=== PATIENT | male | born 1955 | race Caucasian/White ===

== ENCOUNTER 2024-03-10 00:47 | Emergency (ER) | payer OTHER, SELFPAY ==
[2024-03-10 00:59] VITALS: BP 133/92
--- NOTE | 2024-03-10 01:48 | ED.GENMED ---
History of Present Illness
General
Chief Complaint: Anxiety
Source: patient
Exam Limitations: none
Time Seen by Provider: 03/10/24 01:35
History of Present Illness
History of Present Illness:
This is a 68 year old male that comes in with Multiple complaints. States that he has been having these body spasm where he just can't sit still. States that this has been going no for couple of weeks. States that he can't relax. States that it is
worse now then it has ever been. States that he also ran out of his Tramadol yesterday morning and that his PCP had increased this to TID. States that he is unable to get the Prescription filled until Friday. States that he has had increased SOB,
nausea that comes and goes and diarrhea that comes and goes. States that he has a migraines and is lightheaded. States that he also eat a gummy tonight as he can't smoke the Marijuana any more. Denies any fever, shaking chills, chest pain, abd
pain, vomiting, urinary burning.
Past History
Past History
ED Past Medical History: GERD, NIDDM and Other (Peritonitis, Pulmonary nodules (followed up at [facility]), Osteoarthritis, Degenerative disc disease, Migraines. Vertigo. )
ED Past Surgical History: Other (Cataracts, Right hernia repair)
Social History
Tobacco: Former smoker
Alcohol: Occasional
Personal: Single
Living: with roommate
Review of Systems
Review of Systems
All Other Systems: ROS reviewed and negative except as documented in HPI and ROS
Constitutional: Reports no symptoms; Denies fever or chills
EENT: Reports no symptoms
Respiratory: Reports trouble breathing; Denies cough
Cardiac: Reports no symptoms; Denies chest pain
ABD/GI: Reports nausea (On and off) and diarrhea (on and off); Denies abdominal pain or vomiting
: Reports no symptoms; Denies dysuria, frequency or urgency
Musculoskeletal: Reports other (body spasm, can't sit still)
Skin: Reports no symptoms
Neurological: Reports headache and other (Lightheaded); Denies dizzy
Psychiatric: Reports anxiety
Phy Exam
General Physical Exam
General Presentation: no apparent distress
General age: appears stated age
General Skin: warm and dry
General Habitus: elderly
General Mental: alert
General Hydration: dry mucous membranes
ENT Exam
ENT Exam: TM's normal, pharynx normal and neck supple
Eye Exam
Eye Exam: EOMI
Cardiovascular Exam
Cardiovascular Exam: regular rate/rhythm, no edema and normal peripheral pulses
Pulmonary Exam
Pulmonary Exam: lungs clear, no respiratory distress, no rales, chest non tender, no crackles, no rhonchi, no wheezing and no cough
Gastrointestinal Exam
Gastrointestinal Exam: normal bowel sounds, non tender, soft, no organomegaly, no pulsatile mass and non distended
Musculoskeletal Exam
Musculoskeletal Exam: full ROM and no edema
Skin Exam
Skin Exam: normal color, warm/dry, no rash and no petechia
Psychiatric Exam
Psychiatric Exam: anxious
Course
Orders/Labs/Results
Orders:
Orders
03/10/24 01:47
Electrocardiogram (*1) Urgent
Reason for Study: Shortness of Breath
EKG- Treatment ONCE
Tramadol HCl [Ultram] 50 mg PO NOW STA
CR Chest - 2 Views Urgent
Comment:
Reason For Exam: sob
03/10/24 02:18
Complete Blood Count/With Diff Urgent
Comprehensive Metabolic Panel Urgent
03/10/24 02:51
Lorazepam [Ativan] 1 mg PO NOW STA
Abnormal Lab Results
03/10/24
02:18
RBC 4.23 L 10^6/uL
(4.70-6.10)
Hct 38.3 L %
(39.0-52.0)
MCH 32.4 H pg
(27.0-31.0)
Absolute Monos (auto) 0.9 H 10^3/uL
(0.1-0.6)
Monocytes % 12.0 H %
(1.7-9.3)
03/10/24 02:18
03/10/24 02:18
Labs unremarkable.
Vital Signs
Initial and Last Documented VS:
Initial Vital Signs
Temp Pulse Resp BP Pulse Ox
97.7 F 94 22 133/92 97
03/10/24 00:59 03/10/24 00:59 03/10/24 00:59 03/10/24 00:59 03/10/24 00:59
Last Documented Vital Signs
Temp Pulse Resp BP Pulse Ox
97.7 F 94 22 125/88 94
03/10/24 00:59 03/10/24 00:59 03/10/24 00:59 03/10/24 02:22 03/10/24 02:22
MDM/Problems Addressed
Differential Diagnosis Includes:
anxiety, Gummy reaction, Tramadol withdraw
MDM/Problems Addressed:
This is a 68 year old male that comes in with c/o feeling like his body is in spasm and that he can't sit still. States that this has been going on for a few weeks. States that he has had increased SOB but just recently had a CT of the chest done at
[facility] and there is nodule that they are watching. States that he ran out of his Tramadol and is unable to get this filled until Friday. States thta he has nausea and diarrhea that comes and goes.
Will check labs, Medicate with Tramadol and recheck patient.
Back into see patient. Explained that his blood work is hossein. Chest x-ray is negative for any acute findings. Patient has known Pulmonary nodules that are being followed at [facility]. Patient is sitting in the chair and states that he can't sit
still. Patient has taken Gummy's before coming. Explained that people react differently to the gummy's and would encouraged patient not to use them. Patient is to follow up with the Family doctor tomorrow. Will given A dose of Ativan now and
discharge patient home with a prescription for his Tramadol. Patient to return with any concerns.
Chronic conditions affecting care:
Pulmonary nodules
Acute Exacerbation and/or Progression of Chronic Illness:
Pulmonary nodules
*Radiology
Radiology exam reviewed: preliminary read by ED provider (Chest- negative for active disease. )
*Pulse Oximetry
Patient hypoxic: no
*EKG
Interpreted by ED Provider?: Yes
Heart Rate: 83
Rate: normal
Rhythm: sinus
[place]: normal axis
Interval: normal interval
QRS Pattern: normal QRS
Ischemia: no ischemia
*Oven Baker Interpretation
Rate: Oven Baker- N/A
*Critical Care Note
Total Time (30-74mins, 75-104mins- exclusive of procedures): Not Applicable
ED Attending Note
-
Portions of this chart may have been created with voice recognition software.� Occasional wrong word or��sound alike� substitutions may have occurred due to the inherent limitations of voice recognition software.
Discharge Plan
Departure
Patient Disposition: Home (Routine Discharge)
Date of Disposition: 03/10/24
Time of Disposition: 02:55
Patient with high blood pressure during this ER visit?: No
Condition: Good
Covid-19: Not Applicable
Discharge Problem:
Anxiety
Instructions: Generalized Anxiety Disorder (DC)
Prescriptions:
New
tramadol 50 mg tablet
50 mg PO Q8H PRN (Reason: Pain) Qty: 6 0RF
Referrals:
PRIVATE,PHYSICIAN [Family Provider] -
Activity Restrictions/Additional Instructions:
As discussed, your blood work is normal and there is no acute disease of the chest. You have been given a dose of Ativan here. Please call your family doctor tomorrow and set up an appointment for further evaluation. You have had a Prescription for
Tramadol sent to your Pharmacy for a few tablets until you get your prescription filled. IF YOU HAVE ANY OTHER CONCERNS PLEASE RETURN TO THE EMERGENCY ROOM.
Interventions
Interventions:
*Risk Screen - Suicide Last Done: 03/10/24 00:59
*General Assessment Last Done: 03/10/24 00:59
*Neglect/Abuse Screening Last Done: 03/10/24 00:59
*ED COVID-19 Vaccine History Last Done: 03/10/24 00:59
ED- Cardiac Assessment Last Done: 03/10/24 02:22
ED- Neurological Assessment Last Done: 03/10/24 02:22
ED-Psychological Assessment Last Done: 03/10/24 02:22
ED- Pulmonary Assessment Last Done: 03/10/24 02:22
Discharge Date and Time
Print Language: SAMI
[2024-03-10] MEDS: ULTRAM 50 MG PO (02:12)
[2024-03-10 02:22] VITALS: BP 125/88; BMI 32.4
[2024-03-10 02:26] LABS: % Basophils 0.8 % (0-2); % Eosinophils 4.1 % (0-6); % Immature Granulocytes 0.4 % (0-0.5); % Neutrophils 48.7 % (42.2-75.2); Absolute Basophils 0.1 10^3/uL (0-0.2); Absolute Eosinophils 0.3 10^3/uL (0-0.7); Absolute Lymphocytes 2.4 10^3/uL (1.2-3.4); Absolute Monocytes 0.9 10^3/uL (0.1-0.6); Absolute Neutrophils 3.5 10^3/uL (1.4-6.5); Hematocrit 38.3 % (39.0-52.0); Hemoglobin 13.7 g/dL (13.0-18.0); Mean Corp Hgb Conc. 35.8 g/dL (33.0-37.0); Mean Corpuscular Hgb 32.4 pg (27.0-31.0); Mean Corpuscular Volume 90.5 fL (80.0-94.0); Mean Platelet Volume 9.7 fL (7.4-10.4); Nucleated Red Blood Cells % 0 % (-); Platelet Count 251 10^3/uL (130-400); Red Blood Cell Count 4.23 10^6/uL (4.70-6.10); Red Cell Dist. Width 12.8 % (11.5-14.5); White Blood Cell Count 7.1 10^3/uL (4.8-10.8)
[2024-03-10 02:40] LABS: ALT (SGPT) 16 U/L (0-50); AST (SGOT) 17 U/L (17-59); Albumin 4.2 g/dl (3.5-5.0); Alkaline Phosphatase 99 U/L (38-126); Blood Urea Nitrogen 17 mg/dl (9-20); Calcium 9.6 mg/dl (8.4-10.2); Carbon Dioxide 24 mmol/L (22-30); Chloride 107 mmol/L (98-107); Estimated Creatinine Clearance 87 ml/min; Glucose 85 mg/dl (70-99); Sodium 144 mmol/L (135-145); Total Bilirubin 0.5 mg/dl (0.2-1.3); eGFR > 60.00
[2024-03-10] MEDS: ATIVAN 1 MG PO (02:58)
== END 2024-03-10 03:16 | disposition home or self-care (01) ==
LOC: EMR 00:47
PROVIDERS: Clinical Nurse Specialist Family Health; EMERGENCY PHYSICIAN Student in an Organized Health Care Education/Training Program
DX: F41.9 Anxiety disorder, unspecified (principal); E11.36 Type 2 diabetes mellitus with diabetic cataract; K21.9 Gastro-esophageal reflux disease without esophagitis; Z87.891 Personal history of nicotine dependence
CPT/HCPCS: 99285; 71046; 80053; 85025; 93005

== ENCOUNTER 2024-07-07 20:17 | Inpatient (IN) | payer MEDICARE, OTHER, SELFPAY ==
[2024-07-07] VITALS (7 sets, daily range): BP systolic 107–155; BP diastolic 81–101; BMI 32.7; BMI 26.7
[2024-07-07 16:42] LABS: % Basophils 0.5 % (0-2); % Immature Granulocytes 0.4 % (0-0.5); % Lymphocytes 10.6 % (20.5-51.1); % Monocytes 7.6 % (1.7-9.3); % Neutrophils 78.9 % (42.2-75.2); Absolute Basophils 0.1 10^3/uL (0-0.2); Absolute Eosinophils 0.2 10^3/uL (0-0.7); Absolute Immature Granulocytes 0.1 10^3/uL (0-0.05); Absolute Lymphocytes 1.2 10^3/uL (1.2-3.4); Absolute Monocytes 0.9 10^3/uL (0.1-0.6); Hematocrit 46.6 % (39.0-52.0); Hemoglobin 16.4 g/dL (13.0-18.0); Mean Corp Hgb Conc. 35.2 g/dL (33.0-37.0); Mean Corpuscular Hgb 32.2 pg (27.0-31.0); Mean Corpuscular Volume 91.6 fL (80.0-94.0); Mean Platelet Volume 9.5 fL (7.4-10.4); Nucleated Red Blood Cells % 0 % (-); Platelet Count 241 10^3/uL (130-400); Red Blood Cell Count 5.09 10^6/uL (4.70-6.10); Red Cell Dist. Width 13.3 % (11.5-14.5); White Blood Cell Count 11.5 10^3/uL (4.8-10.8)
[2024-07-07 16:57] LABS: ALT (SGPT) 20 U/L (0-50); AST (SGOT) 19 U/L (17-59); Albumin 5.1 g/dl (3.5-5.0); Alkaline Phosphatase 149 U/L (38-126); Blood Urea Nitrogen 14 mg/dl (9-20); Calcium 10.2 mg/dl (8.4-10.2); Carbon Dioxide 29 mmol/L (22-30); Chloride 98 mmol/L (98-107); Glucose 144 mg/dl (70-99); Potassium 4.6 mmol/L (3.5-5.1); Sodium 138 mmol/L (135-145); Total Bilirubin 1.7 mg/dl (0.2-1.3); Total Protein 8.3 g/dl (6.3-8.2); eGFR > 60.00
[2024-07-07 17:08] LABS: Troponin I < 0.012 ng/ml
[2024-07-07 17:13] LABS: COVID-19 Antigen Negative (Negative)
--- NOTE | 2024-07-07 18:16 | ED.GENMED ---
History of Present Illness
<Mario Alberto Nation PA-C - Last Filed: 07/07/24 19:41>
General
Chief Complaint: Breathing Problem
Source: patient
Time Seen by Provider: 07/07/24 18:02
History of Present Illness
History of Present Illness:
68-year-old male with past medical history of GERD, [id number] diabetes and pulmonary nodule that is followed by [facility] presenting to the emergency department for evaluation after he has been dealing with a few months of cough,
shortness of breath, chest discomfort, body aches and generally feeling unwell. Patient states symptoms are not much different today but notes he is just tired of having the symptoms with no explained etiology. Patient denies any fevers, chills,
rigors, nausea, vomiting, bowel changes, pleurisy, hemoptysis, abnormal weight loss. Patient does note he is a former smoker, quit last year and has a 30+ year pack history. Patient also notes that he previously smoked cocaine but has not used in
many years. Apparently saw his primary care provider few days ago and brought the symptoms up however patient states that his primary care provider is aware of the symptoms but nothing is being done about it. Patient does note travel to [place]
and [place] in the months of February and March but no travel since then. No other concerns at this time.
Past History
<Mario Alberto Nation PA-C - Last Filed: 07/07/24 19:41>
Past History
ED Past Medical History: GERD, NIDDM and Other (Peritonitis, Pulmonary nodules (followed up at [facility]), Osteoarthritis, Degenerative disc disease, Migraines. Vertigo. )
ED Past Surgical History: Other (Cataracts, Right hernia repair)
Social History
Tobacco: Former smoker
Alcohol: Occasional
Drug: None
Personal: Single
Living: with roommate
Review of Systems
<Mario Alberto Nation PA-C - Last Filed: 07/07/24 19:41>
Review of Systems
All Other Systems: ROS reviewed and negative except as documented in HPI and ROS
Phy Exam
<Mario Alberto Nation PA-C - Last Filed: 07/07/24 19:41>
Physical Exam
Physical Exam:
GENERAL: Alert , in no apparent distress
HEAD: Normocephalic atraumatic
EYE: conjunctiva clear
NECK: Supple
ENT: o/p clr, mmm.
CARDIAC: Tachycardic rate and rhythm between 120 and 126 bpm, no murmur
LUNGS: Faint right apical wheeze that cleared with coughing, no acute respiratory distress, no rales/rhonchi
NEUROLOGICAL: Alert and oriented
SKIN: Warm and dry, skin intact.
MUSCULOSKELETAL: well perfused.
PSYCH: Anxious and somewhat odd affect, difficult time sitting still
Scores
<Mario Alberto Nation PA-C - Last Filed: 07/07/24 19:41>
Heart Failure Risk
Heart Failure Risk Score: Not Applicable
Heart Score for Chest Pain Patients
STEMI patient?: Not applicable
Withdrawal Assessment of Alcohol
Withdrawal Assessment Completed?: Not applicable
Course
<Mario Alberto Nation PA-C - Last Filed: 07/07/24 19:41>
Orders/Labs/Results
Orders:
Orders
07/07/24 16:09
Electrocardiogram (*1) Urgent
Reason for Study: Chest Pain
EKG- Treatment ONCE
CXR2 [CR Chest - 2 Views ] Urgent
Comment:
Reason For Exam: cough
07/07/24 16:23
COVID-19 Antigen Urgent
Source: Nasal Swab
Complete Blood Count/With Diff Urgent
Comprehensive Metabolic Panel Urgent
Troponin I Urgent
Influenza A+B Rapid Molecular Urgent
AVIVA Source: Nasal Swab
Specimen Description:
07/07/24 18:13
CT Chest PE Study Urgent
Comment:
Reason For Exam: tachy, SOB, cough
Lorazepam [Ativan] 1 mg PO NOW STA
07/07/24 19:28
PTT Urgent
Comment: Obtain baseline before beginning heparin infusion if not already collected
Azithromycin 500 mg/250 ml [Zithromax Infusion] 500 mg in 250 ml IV NOW
CefTRIAXone [Rocephin] 1,000 mg IV NOW STA
Heparin 8,500 units IV NOW STA
Pharmacy Request to Place See Dose Instructions PO NOW STA
Discontinue all Active Warfarin orders?: Yes
Nursing to Place Non Medication Order As Directed
Physician Order: PTT 6 hours after initial start of Heparin infusion
07/07/24 19:30
Heparin 89747 Units/250 ml 25,000 units in 250 ml IV PER PROTOCOL
Weight to be used for heparin protocol in kilograms (kg):: 106.2
Protocol:: DVT/PE
PTT Goal Range to be used:: PTT 73 to 111 seconds
Order type:: Initial
INITIAL Infusion Dose (UNITS/KG/hr) & then follow protocol:: 18 units/kg/hr
Infusion Dose in UNITS/hr & then follow protocol (UNITS/hr):: 1,900
INFUSION RATE in mL/hr & then follow protocol (mL/hr):: 19
For DVT/PE algorithm, re-bolus for low PTT?: Yes
PTT less than or equal to 64 seconds:: Re-bolus 80 units/kg (max 10,000units). Increase by 400 units/hr
(+ 4mL/hr)
PTT 64.1 to 72.9 seconds:: Re-bolus 40 units/kg (max 5,000 units). Increase by 200 units/hr
(+ 2mL/hr)
PTT 73 to 111 seconds:: Target Range. No change in rate.
PTT 111.1 to 130.9 seconds:: Decrease rate by 200 units/hr (- 2 mL/hr)
PTT 131 to 199.9 seconds:: HOLD for 1 hr. Then decrease by 300 units/hr (- 3mL/hr)
PTT greater than or equal to 200 seconds:: HOLD for 2 hrs & Notify Provider. Then decrease by 400 units/hr
(- 4mL/hr)
Lab follow-up:: Each change, PTT q6h until 2 consecutive are therapeutic. Then
PTT daily.
07/07/24 19:36
Azithromycin [Zithromax] 500 mg PO NOW STA
CefTRIAXone [Rocephin] 1,000 mg IV NOW STA
Heparin 8,500 units IV NOW STA
Pharmacy Request to Place See Dose Instructions PO NOW STA
Discontinue all Active Warfarin orders?: Yes
07/07/24 19:45
Heparin 40085 Units/250 ml 25,000 units in 250 ml IV PER PROTOCOL
Weight to be used for heparin protocol in kilograms (kg):: 106.2
Protocol:: DVT/PE
PTT Goal Range to be used:: PTT 73 to 111 seconds
Order type:: Initial
INITIAL Infusion Dose (UNITS/KG/hr) & then follow protocol:: 18 units/kg/hr
Infusion Dose in UNITS/hr & then follow protocol (UNITS/hr):: 1,900
INFUSION RATE in mL/hr & then follow protocol (mL/hr):: 19
For DVT/PE algorithm, re-bolus for low PTT?: Yes
PTT less than or equal to 64 seconds:: Re-bolus 80 units/kg (max 10,000units). Increase by 400 units/hr
(+ 4mL/hr)
PTT 64.1 to 72.9 seconds:: Re-bolus 40 units/kg (max 5,000 units). Increase by 200 units/hr
(+ 2mL/hr)
PTT 73 to 111 seconds:: Target Range. No change in rate.
PTT 111.1 to 130.9 seconds:: Decrease rate by 200 units/hr (- 2 mL/hr)
PTT 131 to 199.9 seconds:: HOLD for 1 hr. Then decrease by 300 units/hr (- 3mL/hr)
PTT greater than or equal to 200 seconds:: HOLD for 2 hrs & Notify Provider. Then decrease by 400 units/hr
(- 4mL/hr)
Lab follow-up:: Each change, PTT q6h until 2 consecutive are therapeutic. Then
PTT daily.
07/07/24 20:[address] See Dose Instructions IV DIRECTED
Pharmacy Request to Place See Dose Instructions IV DIRECTED
Abnormal Lab Results
07/07/24
16:23
WBC 11.5 H 10^3/uL
(4.8-10.8)
MCH 32.2 H pg
(27.0-31.0)
Abs Immat Gran (auto) 0.1 H 10^3/uL
(0-0.05)
Absolute Neuts (auto) 9.0 H 10^3/uL
(1.4-6.5)
Absolute Monos (auto) 0.9 H 10^3/uL
(0.1-0.6)
Neutrophils % 78.9 H %
(42.2-75.2)
Lymphocytes % 10.6 L %
(20.5-51.1)
Glucose 144 H mg/dl
(70-99)
Total Bilirubin 1.7 H mg/dl
(0.2-1.3)
Alkaline Phosphatase 149 H U/L
(38-126)
Total Protein 8.3 H g/dl
(6.3-8.2)
Albumin 5.1 H g/dl
(3.5-5.0)
07/07/24 16:23
07/07/24 16:23
Vital Signs
Initial and Last Documented VS:
Initial Vital Signs
Temp Pulse Resp BP Pulse Ox
36.9 C 120 20 155/97 95
07/07/24 16:05 07/07/24 16:05 07/07/24 16:05 07/07/24 16:05 07/07/24 16:05
Last Documented Vital Signs
Temp Pulse Resp BP Pulse Ox
98.1 F 114 27 107/89 93
07/07/24 18:00 07/07/24 18:04 07/07/24 18:04 07/07/24 18:04 07/07/24 18:21
<Chay Manrique MD - Last Filed: 07/07/24 19:40>
Orders/Labs/Results
Orders:
Orders
07/07/24 16:09
Electrocardiogram (*1) Urgent
Reason for Study: Chest Pain
EKG- Treatment ONCE
CXR2 [CR Chest - 2 Views ] Urgent
Comment:
Reason For Exam: cough
07/07/24 16:23
COVID-19 Antigen Urgent
Source: Nasal Swab
Complete Blood Count/With Diff Urgent
Comprehensive Metabolic Panel Urgent
Troponin I Urgent
Influenza A+B Rapid Molecular Urgent
AVIVA Source: Nasal Swab
Specimen Description:
07/07/24 18:13
CT Chest PE Study Urgent
Comment:
Reason For Exam: tachy, SOB, cough
Lorazepam [Ativan] 1 mg PO NOW STA
07/07/24 19:28
PTT Urgent
Comment: Obtain baseline before beginning heparin infusion if not already collected
Azithromycin 500 mg/250 ml [Zithromax Infusion] 500 mg in 250 ml IV NOW
CefTRIAXone [Rocephin] 1,000 mg IV NOW STA
Heparin 8,500 units IV NOW STA
Pharmacy Request to Place See Dose Instructions PO NOW STA
Discontinue all Active Warfarin orders?: Yes
Nursing to Place Non Medication Order As Directed
Physician Order: PTT 6 hours after initial start of Heparin infusion
07/07/24 19:30
Heparin 23446 Units/250 ml 25,000 units in 250 ml IV PER PROTOCOL
Weight to be used for heparin protocol in kilograms (kg):: 106.2
Protocol:: DVT/PE
PTT Goal Range to be used:: PTT 73 to 111 seconds
Order type:: Initial
INITIAL Infusion Dose (UNITS/KG/hr) & then follow protocol:: 18 units/kg/hr
Infusion Dose in UNITS/hr & then follow protocol (UNITS/hr):: 1,900
INFUSION RATE in mL/hr & then follow protocol (mL/hr):: 19
For DVT/PE algorithm, re-bolus for low PTT?: Yes
PTT less than or equal to 64 seconds:: Re-bolus 80 units/kg (max 10,000units). Increase by 400 units/hr
(+ 4mL/hr)
PTT 64.1 to 72.9 seconds:: Re-bolus 40 units/kg (max 5,000 units). Increase by 200 units/hr
(+ 2mL/hr)
PTT 73 to 111 seconds:: Target Range. No change in rate.
PTT 111.1 to 130.9 seconds:: Decrease rate by 200 units/hr (- 2 mL/hr)
PTT 131 to 199.9 seconds:: HOLD for 1 hr. Then decrease by 300 units/hr (- 3mL/hr)
PTT greater than or equal to 200 seconds:: HOLD for 2 hrs & Notify Provider. Then decrease by 400 units/hr
(- 4mL/hr)
Lab follow-up:: Each change, PTT q6h until 2 consecutive are therapeutic. Then
PTT daily.
07/07/24 19:36
Azithromycin [Zithromax] 500 mg PO NOW STA
CefTRIAXone [Rocephin] 1,000 mg IV NOW STA
Heparin 8,500 units IV NOW STA
Pharmacy Request to Place See Dose Instructions PO NOW STA
Discontinue all Active Warfarin orders?: Yes
07/07/24 19:45
Heparin 18440 Units/250 ml 25,000 units in 250 ml IV PER PROTOCOL
Weight to be used for heparin protocol in kilograms (kg):: 106.2
Protocol:: DVT/PE
PTT Goal Range to be used:: PTT 73 to 111 seconds
Order type:: Initial
INITIAL Infusion Dose (UNITS/KG/hr) & then follow protocol:: 18 units/kg/hr
Infusion Dose in UNITS/hr & then follow protocol (UNITS/hr):: 1,900
INFUSION RATE in mL/hr & then follow protocol (mL/hr):: 19
For DVT/PE algorithm, re-bolus for low PTT?: Yes
PTT less than or equal to 64 seconds:: Re-bolus 80 units/kg (max 10,000units). Increase by 400 units/hr
(+ 4mL/hr)
PTT 64.1 to 72.9 seconds:: Re-bolus 40 units/kg (max 5,000 units). Increase by 200 units/hr
(+ 2mL/hr)
PTT 73 to 111 seconds:: Target Range. No change in rate.
PTT 111.1 to 130.9 seconds:: Decrease rate by 200 units/hr (- 2 mL/hr)
PTT 131 to 199.9 seconds:: HOLD for 1 hr. Then decrease by 300 units/hr (- 3mL/hr)
PTT greater than or equal to 200 seconds:: HOLD for 2 hrs & Notify Provider. Then decrease by 400 units/hr
(- 4mL/hr)
Lab follow-up:: Each change, PTT q6h until 2 consecutive are therapeutic. Then
PTT daily.
07/07/24 20:[address] See Dose Instructions IV DIRECTED
Pharmacy Request to Place See Dose Instructions IV DIRECTED
Abnormal Lab Results
07/07/24
16:23
WBC 11.5 H 10^3/uL
(4.8-10.8)
MCH 32.2 H pg
(27.0-31.0)
Abs Immat Gran (auto) 0.1 H 10^3/uL
(0-0.05)
Absolute Neuts (auto) 9.0 H 10^3/uL
(1.4-6.5)
Absolute Monos (auto) 0.9 H 10^3/uL
(0.1-0.6)
Neutrophils % 78.9 H %
(42.2-75.2)
Lymphocytes % 10.6 L %
(20.5-51.1)
Glucose 144 H mg/dl
(70-99)
Total Bilirubin 1.7 H mg/dl
(0.2-1.3)
Alkaline Phosphatase 149 H U/L
(38-126)
Total Protein 8.3 H g/dl
(6.3-8.2)
Albumin 5.1 H g/dl
(3.5-5.0)
07/07/24 16:23
07/07/24 16:23
Vital Signs
Initial and Last Documented VS:
Initial Vital Signs
Temp Pulse Resp BP Pulse Ox
36.9 C 120 20 155/97 95
07/07/24 16:05 07/07/24 16:05 07/07/24 16:05 07/07/24 16:05 07/07/24 16:05
Last Documented Vital Signs
Temp Pulse Resp BP Pulse Ox
98.1 F 114 27 107/89 93
07/07/24 18:00 07/07/24 18:04 07/07/24 18:04 07/07/24 18:04 07/07/24 18:21
<Mario Alberto Natino PA-C - Last Filed: 07/07/24 19:41>
MDM/Problems Addressed
Differential Diagnosis Includes:
Asthma/COPD, PE, pneumonia, atypical ACS presentation, cardiomyopathy, valvular dysfunction
MDM/Problems Addressed:
68-year-old male presenting to the emergency department for evaluation of a multitude of symptoms that have been ongoing for the last few months, reportedly somewhat worse now. Reports he was seen here back in February for similar but states no
etiology is found. On arrival here patient persistently tachycardic and remains this way during my exam. Pulse ox between 93 and 95% on room air. Patient also noting feeling very anxious and requesting a dose of oral Ativan. Labs initiated on
arrival show a mild leukocytosis of 11,000. Labs otherwise largely unremarkable including negative troponin. EKG nonischemic. Given patient's persistent tachycardia and borderline pulse ox will obtain CT scan to rule out pulmonary embolism.
Disposition pending.
<Mario Alberto Nation PA-C - Last Filed: 07/07/24 19:41>
*Radiology
Radiology exam reviewed: preliminary read by ED provider (Right lower lung atelectasis)
*Pulse Oximetry
Patient hypoxic: no
*EKG
Heart Rate: 112
Rate: tachycardiac
Rhythm: sinus
Erick: left axis deviation
Ischemia: no ischemia
*Stock Speculator Interpretation
Rate: tachycardiac
Rhythm: sinus
*Critical Care Note
Total Time (30-74mins, 75-104mins- exclusive of procedures): 30
comment:
Critical care statement: A total of 30 minutes of critical care time was provided for this patient. This includes management of unstable vital signs, evaluation of the patient at bedside, reviewing the patient's pertinent medical records, discussion
with consultants, review of old EKGs and review of pertinent medical records. This time with separate from time utilized to perform the aforementioned documented procedures
Data Reviewed
Review of Other/Old Records Reveals: Labs and Records
Source: patient and records
<Mario Alberto Nation PA-C - Last Filed: 07/07/24 19:41>
Patient Management
Discussion with other providers: Hospitalist
Escalation/DeEscalation of care consider admission/obs:
Patient CTA shows suspected bilateral pulmonary emboli and left lower lung pneumonia. Will initiate patient on heparin bolus and drip. Antibiotics ordered to cover for pneumonia. Patient does remain tachycardic, tachypneic and pulse ox between 93
and 96% on room air. Hospitalist team aware and accepts for continued evaluation and treatment.
ED Attending Note
<Mario Alberto Nation PA-C - Last Filed: 07/07/24 19:41>
-
Portions of this chart may have been created with voice recognition software.� Occasional wrong word or��sound alike� substitutions may have occurred due to the inherent limitations of voice recognition software.
<Chay Manrique MD - Last Filed: 07/07/24 19:40>
ED Attending Note
Patient seen and examined by attending physician: Yes
ED Attending Note:
I have seen and evaluated the patient with a [id number] encounter. I have spoken to the advance practicer provider and involved in the medical history, the physical exam, medical decision making.
Evaluation and management service: agree unless noted differently below.
Results interpretation: agree unless noted differently below.
Focused HPI: 68-year-old male with past medical history of GERD, diabetes presents to the ER for evaluation of shortness of breath. Patient says he has had chronic shortness of breath for the past few months but worsening recently. He denies any
significant chest pain. He does have a chronic cough. Has not noticed any swelling or pain in the legs. He says he is a former smoker quit 1 year ago. Has a history of pulmonary nodules for which she follows at [facility].
Physical exam: Awake alert no distress. Hypertensive, tachycardic, tachypneic, low normal pulse ox. Occasional wheeze and coughing but no focal rales or rhonchi appreciated. No edema in the legs. Tachycardia with regular rhythm on cardiac
auscultation.
Medical Decision Makin-year-old male with past medical history as noted presents for evaluation of shortness of breath for the past few months worsening recently associated with cough. Vitals and exam as above. Labs sent off including a CBC
which shows a leukocytosis. CMP no clinically significant abnormalities. COVID and flu negative. Chest x-ray somewhat equivocal sent for a follow-up CT of the chest which showed findings concerning for pulmonary embolism as well as left sided
pneumonia. Cover with antibiotics, started on IV heparin. Admit for continued management.
Discharge Plan
Departure
Patient Disposition: Admit
Date of Disposition: 07/07/24
Time of Disposition: 19:39
Presentation/result/management discussed w/ accepting MD/DO: Hospitalist
Discharge Problem:
Pulmonary embolism, Pneumonia
Prescriptions:
No Action
tramadol 50 mg tablet
50 mg PO Q8H PRN (Reason: Pain) Qty: 6 0RF
Referrals:
PRIVATE,PHYSICIAN [Family Provider] -
Interventions
Interventions:
*Risk Screen - Suicide Last Done: 07/07/24 16:05
*General Assessment Last Done: 07/07/24 18:20
*Neglect/Abuse Screening Last Done: 07/07/24 16:05
*ED- Fall Risk Assessment Last Done: 07/07/24 18:21
*ED COVID-19 Vaccine History Last Done: 07/07/24 18:20
ED- Cardiac Assessment Last Done: 07/07/24 18:21
ED- Pulmonary Assessment Last Done: 07/07/24 18:21
Discharge Date and Time
Print Language: GREEK
[2024-07-07] MEDS: ATIVAN 1 MG PO ×2 (18:19→23:45)
[2024-07-07] MEDS: ROCEPHIN 1000 MG IV (20:03)
[2024-07-07] MEDS: ZITHROMAX 500 MG PO (20:04)
--- NOTE | 2024-07-07 20:12 | HPS.HSE ---
Family Physician
-
Family Physician: PHYSICIAN PRIVATE
Chief Complaint
-
cough, chest pain
History of Present Illness
68-year-old male past medical history of GERD, diabetes, pulmonary nodule, osteoarthritis, migraines, peritonitis status post bowel surgery, presenting to the emergency room after he has been having few months of cough, pleuritic chest pain with
coughing, shortness of breath and chest discomfort and body aches and generally feeling unwell. He is tired of the symptoms. He denies any fevers or chills, sweats, nausea vomiting, bowel changes, coughing up blood or weight loss. He has burping
and some dry heaving. Denies vomiting. He was also having some loose stools before not currently. He is a former smoker and he quit last year. He smoked cocaine many many years ago.
He went to [place] 2 weeks ago and had a CT scan there and was told that he had chronic lung damage but no other findings on his CAT scan.
He recently traveled to [place] in April by car.
He denies alcohol.
Medical History
Past Medical History
Past Medical History: Reports Other (GERD, diabetes, pulmonary nodule, osteoarthritis, migraines, peritonitis status post bowel surgery,)
Past Surgical History: Reports Bowel Resection
Social History
Tobacco: Former Smoker
Alcohol: None
Family History
Family History: Not pertinent
Allergies / Home Medications
Allergies reflects when Allergies were last updated in [facility].
Home Medications with original date entered in [facility]
Allergy/Medication List:
Allergies
Allergy/AdvReac Type Severity Reaction Status Date / Time
No Known Allergies Allergy Verified 07/07/24 16:05
Home Medications
albuterol sulfate 90 mcg/actuation aerosol inhaler 2 puff inhalation R Q6HPRN PRN sob 07/07/24
dulaglutide 1.5 mg/0.5 mL subcutaneous pen injector (Trulicity) 1.5 mg SC WE 07/07/24
furosemide 20 mg tablet 20 mg PO DAILY 07/07/24
ipratropium 0.5 mg-albuterol 3 mg (2.5 mg base)/3 mL nebulization soln 3 ml inhalation R Q4HPRN PRN sob 07/07/24
lamotrigine 25 mg tablet 25 mg PO MOWEFR 07/07/24
lorazepam 1 mg tablet 1 mg PO TID 07/07/24
meloxicam 7.5 mg tablet 7.5 mg PO DAILY 07/07/24
metformin 500 mg tablet,extended release 24 hr 500 mg PO BID 07/07/24
omeprazole 40 mg capsule,delayed release 40 mg PO DAILY 07/07/24
peg 400-propylene glycol (PF) 0.4 %-0.3 % eye drops in a dropperette (Systane (PF)) 1 drp BOTH EYES Q4HPRN PRN dry eyes 07/07/24
tamsulosin 0.4 mg capsule 0.4 mg PO DAILY 07/07/24
tramadol 50 mg tablet 50 mg PO TID 07/07/24
Review of Systems
-
History Source: Patient
A 12 point ROS was completed and negative except as noted: Yes
Constitutional: Reports No Symptoms
EENT: Reports No Symptoms
Respiratory: Reports See HPI
Cardiac: Reports See HPI
Abdomen/GI: Reports See HPI
: Reports No Symptoms
Musculoskeletal: Reports No Symptoms
Skin: Reports No Symptoms
Neurological: Reports No Symptoms
Endocrine: Reports No Symptoms
Hematologic/Lymphatic: Reports No Symptoms
Psych: Reports No Symptoms
Physical Exam
Vital Signs
Vital Signs
Temp Pulse Resp BP Pulse Ox
98.1 F 114 27 107/89 93
07/07/24 18:00 07/07/24 18:04 07/07/24 18:04 07/07/24 18:04 07/07/24 18:21
Physical Exam
General: Well Developed, Well Nourished and No Apparent Distress
HEENT: NormoCephalic, Moist mucous membranes and Atraumatic
Respiratory: Clear
Cardiac: S1/S2 and Regular Rhythm; No Murmur or Rub
GI: Soft, Non Tender, Non Distended and Normal Bowel Sounds; No Organomegaly
Rectal: Deferred by Provider
Musculoskeletal: No Clubbing, No Cyanosis and No Edema
Skin: No Rash
Neuro: Nonfocal/grossly intact
Laboratory Results
-
07/07/24 16:23
07/07/24 16:23
Laboratory Results
Total Bilirubin 1.7 mg/dl (0.2-1.3) H 07/07/24 16:23
AST 19 U/L (17-59) 07/07/24 16:23
ALT 20 U/L (0-50) 07/07/24 16:23
Alkaline Phosphatase 149 U/L (38-126) H 07/07/24 16:23
Troponin I < 0.012 ng/ml 07/07/24 16:23
Data Reviewed
-
Lab Data: Labs Reviewed by me
Old Records: Reviewed
Impression/Plan
-
IMPRESSION:
PLAN:
# Unprovoked bilateral pulmonary arterial emboli
-EKG shows sinus tachycardia
-Troponin negative
-Heparin drip
-Check venous ultrasound
-Check echo
-Pulmonary consulted
# Severe left lower lobe bronchitis/left lung pneumonia
-Patient technically meets sepsis criteria although this could also be from pulmonary embolism
-COVID and flu negative
-Check lactate
-IV fluids, hold Lasix unclear why takes
-Ceftriaxone/azithromycin
-Xopenex/ipratropium as needed
-Mucinex
# Burping secondary to GERD
-Protonix 40 daily
History of smoking
Chronic anxiety
-Continue Ativan
Type 2 diabetes
-Hold metformin
-Insulin sliding scale
Pulmonary nodule
Osteoarthritis
History of migraines
-Continue Lamictal
BPH
-Continue tamsulosin
Chronic back pain
-Continue meloxicam
History of peritonitis status post bowel surgery
Full code
DVT prophylaxis�heparin drip
Regular diet
[2024-07-07 20:27] LABS: APTT 28.7 Sec (23.4-35.0)
[2024-07-07] MEDS: HEPARIN 8500 UNITS IV (20:35)
[2024-07-07] MEDS: HEPARIN 25000 UNITS/250 ML IV (20:45)
[2024-07-07] MEDS: FLUSH (NSS) 1 FLUSH IV (21:19)
[2024-07-07] MEDS: TUMS CHEWABLE TABLET 200 MG PO (22:11)
[2024-07-07] MEDS: MYLICON 80 MG PO (22:11)
[2024-07-07] MEDS: MELATONIN 5 MG PO (22:12)
[2024-07-07 22:13] LABS: Lactic Acid 1.3 mmol/L (0.7-2.0)
--- NOTE | 2024-07-07 23:29 | PTCARENOTE ---
Patient arrived from ED. Patient oriented to room, call dee within reach. Heparin drip running at ordered rate of 19 units.
[2024-07-07] MEDS: ULTRAM 50 MG PO (23:38)
[2024-07-08] MEDS: NSS 1000 IV ×3 (00:52→20:36)
[2024-07-08 03:15] VITALS: BP 116/69
[2024-07-08 03:22] LABS: APTT 50.6 Sec (23.4-35.0)
[2024-07-08] MEDS: HEPARIN 8500 UNITS IV (03:40)
[2024-07-08] MEDS: TYLENOL 650 MG PO (05:13)
[2024-07-08] MEDS: ATIVAN 1 MG PO ×3 (06:01→21:46)
[2024-07-08 07:20] VITALS: BP 142/92
[2024-07-08 07:26] LABS: Glucose - Point of Care 132 mg/dl (70-99)
[2024-07-08 07:48] LABS: % Basophils 0.7 % (0-2); % Eosinophils 0.8 % (0-6); % Immature Granulocytes 0.3 % (0-0.5); % Neutrophils 74.2 % (42.2-75.2); Absolute Basophils 0.1 10^3/uL (0-0.2); Absolute Eosinophils 0.1 10^3/uL (0-0.7); Absolute Monocytes 0.8 10^3/uL (0.1-0.6); Absolute Neutrophils 5.7 10^3/uL (1.4-6.5); Hematocrit 39.9 % (39.0-52.0); Hemoglobin 14.1 g/dL (13.0-18.0); Mean Corp Hgb Conc. 35.3 g/dL (33.0-37.0); Mean Corpuscular Hgb 32.3 pg (27.0-31.0); Mean Corpuscular Volume 91.5 fL (80.0-94.0); Mean Platelet Volume 9.9 fL (7.4-10.4); Nucleated Red Blood Cells % 0 % (-); Platelet Count 207 10^3/uL (130-400); Red Blood Cell Count 4.36 10^6/uL (4.70-6.10); Red Cell Dist. Width 13.4 % (11.5-14.5); White Blood Cell Count 7.6 10^3/uL (4.8-10.8)
[2024-07-08] MEDS: XOPENEX 1.25 MG INHALANT SOLUTION INH ×3 (07:50→20:21)
[2024-07-08] MEDS: ATROVENT NEBULES INH (07:50)
--- NOTE | 2024-07-08 09:18 | CON.PUL ---
Consultation
Consultation Request
Date/Time Consultation Requested: 07/08/2024-9 AM
Date/Time Consultation Performed: 07/08/2024-10 AM
Requesting Provider: hospitalist
Performing Provider: Dr. Martin
Reason for Consultation: pulm embolism
Medical History
-
Chief Complaint: Shortness of breath and cough
History of Present Illness:
66-year-old male former smoker with underlying diabetes, pulmonary nodule, GERD, osteoarthritis, migraine, peritonitis status post bowel surgery as well as former drug abuse presented with several week history of cough, shortness of breath, atypical
chest pains, nonproductive cough and found to have possible pulmonary emboli-pulmonary consulted for questionable pulmonary embolism/shortness of breath 07/08/2024.. The patient states that he has had shortness of breath and nonproductive cough for
several weeks. This has been progressive. Denies any chest pain, pleurisy, hemoptysis and has rare episodes of thick mucus production and has some dyspnea on exertion but no abdominal pain, nausea, increased leg swelling, or calf pain.
Past Medical History
Past Medical History: None (COPD suspected. Former smoker. GERD. Diabetes. Pulmonary nodule. Osteoarthritis. Migraines. Peritonitis/bowel surgery. Former drug abuse-cocaine/marijuana.)
Social History
Tobacco: Former Smoker ([id number] quit 1 year ago)
Alcohol: None
Drug: Former User (Cocaine), Marijuana and Cocaine
Living: With Family
Occupational Exposures: No known asbestos exposure
Environmental Exposures: No known tuberculosis exposure
Family History
Family History: Reviewed & Not Pertinent
Allergies / Home Medications
Allergies
Allergy/AdvReac Type Severity Reaction Status Date / Time
No Known Allergies Allergy Verified 07/07/24 16:05
Home Medications
�Medication �Instructions �Recorded �Confirmed �Last Taken �Type
albuterol sulfate 90 mcg/actuation 2 puff inhalation R Q6HPRN PRN sob 07/07/24 07/07/24 Unknown History
aerosol inhaler
dulaglutide 1.5 mg/0.5 mL 1.5 mg SC WE 07/07/24 07/07/24 07/07/24 History
subcutaneous pen injector
(Trulicity)
furosemide 20 mg tablet 20 mg PO DAILY 07/07/24 07/07/24 Unknown History
ipratropium 0.5 mg-albuterol 3 mg 3 ml inhalation R Q4HPRN PRN sob 07/07/24 07/07/24 Unknown History
(2.5 mg base)/3 mL nebulization
soln
lamotrigine 25 mg tablet 25 mg PO MOWEFR 07/07/24 07/07/24 Unknown History
lorazepam 1 mg tablet 1 mg PO TID 07/07/24 07/07/24 Unknown History
meloxicam 7.5 mg tablet 7.5 mg PO DAILY 07/07/24 07/07/24 Unknown History
metformin 500 mg tablet,extended 500 mg PO BID 07/07/24 07/07/24 Unknown History
release 24 hr
omeprazole 40 mg capsule,delayed 40 mg PO DAILY 07/07/24 07/07/24 Unknown History
release
peg 400-propylene glycol (PF) 0.4 1 drp BOTH EYES Q4HPRN PRN dry eyes 07/07/24 07/07/24 Unknown History
%-0.3 % eye drops in a dropperette
(Systane (PF))
tamsulosin 0.4 mg capsule 0.4 mg PO DAILY 07/07/24 07/07/24 Unknown History
tramadol 50 mg tablet 50 mg PO TID 07/07/24 07/07/24 Unknown History
Review of Systems
-
Unable to Obtain full review of systems at this time due to: Other (Per HPI)
Vitals / Labs / Diagnostic Testing
Vital Signs
Temp Pulse Resp BP Pulse Ox
98.0 F 87 20 142/92 98
07/08/24 07:20 07/08/24 07:20 07/08/24 07:20 07/08/24 07:20 07/08/24 07:20
Lab Data
07/08/24 07:02
Laboratory Results
07/07/24 07/08/24
19:56 02:59
APTT 28.7 50.6 H
Microbiology
07/07/24 16:23 Nasal Swab Influenza Types A & B (ONEL) - Final
Negative for Influenza A & B, NAAT
Negative results must be combined with clinical observations
and patient history.
Nucleic Acid Amplification test (NAAT)performed on the
[employer] platform.
Diagnostic Testing:
Physical Exam
-
Exam:
Well-nourished and well-developed in no apparent distress
HEENT-atraumatic, normocephalic
Neck-supple, no JVD, no bruit
Heart-regular rate and rhythm-no murmurs, rubs or gallops
Chest-clear to auscultation, no wheezes, crackles
Back-no tenderness
Abdomen-soft, nontender, nondistended, no hepatosplenomegaly
Extremities-no cyanosis, clubbing, edema and good peripheral pulses
Integument-intact, no rashes, lesions or ecchymosis
Neurology-alert and oriented, nonfocal motor and sensory exam
Assessment
-
66-year-old male former smoker with underlying diabetes, pulmonary nodule, GERD, osteoarthritis, migraine, peritonitis status post bowel surgery as well as former drug abuse presented with several week history of cough, shortness of breath, atypical
chest pains, nonproductive cough and found to have possible pulmonary emboli-pulmonary consulted for questionable pulmonary embolism/shortness of breath 07/08/2024.
Questionable pulmonary emboli
Awzynjwoa-[id number]
COPD suspected with mild acute exacerbation
Mild leukocytosis
Conditions present prior to admission:
COPD suspected.
Former smoker.
GERD.
Diabetes.
Pulmonary nodule--unclear specifics, receives CT chest [place] for lung cancer screening by primary
Osteoarthritis.
Migraines. Peritonitis/bowel surgery. Former drug abuse-cocaine/marijuana.
Plan
Respiratory decompensation over the last 3 weeks likely related to respiratory tract infection possibly viral initially and now bacterial as well as probable underlying COPD with acute exacerbation and less likely venous thromboembolic disease
Supplemental oxygen as needed
Mucolytic's-on Mucinex
Nebulizers-Xopenex 3 times daily as well as ipratropium bromide 3 times daily
Begin Decadron
Outpatient inhalers will be recommended-triple therapy in addition to prednisone taper
Bedside PFT
CT chest reviewed-not convinced patient has significant venous thromboembolic disease
Check VQ scan
Check cultures
Empiric antibiotics
Check procalcitonin-if negative consider discontinue antibiotics and observing
Follow leukocytosis
DVT prophylaxis-on heparin drip
GI prophylaxis-on PPI
Reviewed with significant other at the bedside
Outpatient pulmonary follow-up recommended-PFTs, inhalers, ongoing smoking cessation counseling, and yearly low-dose lung cancer screening CT, sleep apnea workup
Diagnostic data:
Chest x-ray 03/10/2024-minimal opacifications left base otherwise clear
Chest x-ray 07/07/2024-mild asymmetrical airspace disease left midlung field consistent with mild pneumonia, decreased bilateral lung volumes
CT chest 07/07/2024-bilateral diffuse decreased attenuation through pulmonary arteries in both lungs involving the lobar and segmental pulmonary arteries suggesting acute bilateral pulmonary emboli, symmetry of the findings in the absence of focal
low-attenuation thrombus raises the possibility this is a false positive finding, severe left lower lobe bronchitis, 3.1 cm centrilobular airspace disease superior segment left lower lobe and mild centrilobular groundglass opacification in the
lingula consistent with pneumonia, moderate enlarged left hilar lymph node, 1.6 cm pancreatic cyst, esophagitis
Lower extremity ultrasound 07/08/2024-no evidence for DVT bilaterally
Echocardiogram 07/08/2024-normal biventricular size and systolic function, EF 50-55%, normal diastolic function, no significant valvular disease
Data Reviewed
-
EKG: Report reviewed by me
Radiology: Image personally visualized and interpreted and Report reviewed by me
CT Scan: Image personally visualized and interpreted and Report reviewed by me
Ultrasound: Report reviewed by me
Medical Tests (Nuc Med, Echo etc): Report reviewed by me
Labs: Labs reviewed by me
Old Records: Reviewed
Total Time Spent with Patient (in minutes): 65
[2024-07-08] MEDS: MOBIC 7.5 MG PO (09:34)
[2024-07-08] MEDS: MUCINEX 1200 MG PO ×2 (09:34→20:37)
[2024-07-08] MEDS: NSS (PRESERVATIVE FREE) 10 ML IV (09:34)
[2024-07-08] MEDS: FLOMAX 0.4 MG PO (09:34)
[2024-07-08] MEDS: NOVOLOG FLEXPEN-LOW RESISTANCE SC ×2 (09:34→11:16)
[2024-07-08] MEDS: ULTRAM 50 MG PO ×3 (09:35→21:46)
[2024-07-08] MEDS: PROTONIX IV 40 MG IV (09:35)
[2024-07-08] MEDS: HEPARIN 25000 UNITS/250 ML IV (09:47)
[2024-07-08 10:34] LABS: APTT > 200 Sec (23.4-35.0)
[2024-07-08 10:47] LABS: Glycohemoglobin (HgbA1c) 5.7 % (4.0-5.6)
[2024-07-08 11:16] LABS: Glucose - Point of Care 110 mg/dl (70-99)
[2024-07-08 11:55] LABS: ALT (SGPT) 15 U/L (0-50); AST (SGOT) 21 U/L (17-59); Albumin 3.9 g/dl (3.5-5.0); Alkaline Phosphatase 142 U/L (38-126); Blood Urea Nitrogen 16 mg/dl (9-20); Calcium 9.4 mg/dl (8.4-10.2); Carbon Dioxide 25 mmol/L (22-30); Chloride 101 mmol/L (98-107); Estimated Creatinine Clearance 81 ml/min; Glucose 122 mg/dl (70-99); Potassium 3.9 mmol/L (3.5-5.1); Sodium 134 mmol/L (135-145); Total Bilirubin 1.3 mg/dl (0.2-1.3); Total Protein 6.8 g/dl (6.3-8.2); eGFR > 60.00
[2024-07-08] MEDS: FIORICET 1 TAB PO ×2 (11:57→18:35)
[2024-07-08] MEDS: DECADRON 4 MG IV ×2 (11:58→20:37)
--- NOTE | 2024-07-08 12:00 | W.PN.HOSP.TC ---
Addendum entered and electronically signed by Faviola Galindo MD 07/08/24 15:47:
Seen earlier today. Late documentation
I saw and evaluated the patient. I reviewed the resident�s note and agree with findings and plan as documented in the resident�s note Except for changes in my documentation
68-year-old male with chest pain. Went to [place] [address] scan and was told that he had chronic lung damage. He recently traveled to [place] in April by car
CT chest-bilateral diffuse decreased attenuation throughout pulmonary arteries suggesting bilateral PE. Severe left lower lobe bronchitis and mild bronchitis in the upper lobes. 3.1 cm airspace consolidation in the left lower lobe possibly left
lung pneumonia pulmonary infarcts also considered. Moderately enlarged left hilar lymph node. Mild circumferential wall thickening about the distal esophagus. Mild splenomegaly. 1.6 cm cyst in the pancreatic body
EKG reviewed by me-sinus tachycardia. Left axis deviation
Was complaining of headache better with Fioricet
Cardiovascular system S1-S2 appreciated
Chest clear to auscultation
Abdomen soft and nontender
No pedal edema
# Bilateral PE
Recent travel to [place] in April by car
Heparin drip to be changed to weight-based Lovenox tonight
Pricing of Eliquis to be checked by case management
Venous Dopplers lower extremity-neg for DVT
Age appropriate malignancy screening discussed with the patient regarding endoscopy. He had a colonoscopy within the past year with outside GI group states that he had polyps and he is to go back. He is also aware about prostate exam
Echo ordered
Pulmonary consulted
# Severe left lower lobe bronchitis/left lung pneumonia
Pulmonary infarction cannot be ruled out
Currently on ceftriaxone Zithromax
Mucolytic's
Xopenex and ipratropium inhalers
# Diabetes type 2-hemoglobin A1c-
On Trulicity 1.5 mg on Wednesdays.
Hold metformin with recent IV dye. Sliding scale coverage with Accu-Cheks
# GERD-continue PPI. Esophagitis on CT. Needs EGD as outpatient
# History of pulmonary nodules
# Chronic anxiety-on as needed Ativan, Lamictal
# History of migraines-takes Excedrin Fioricet ordered here
# Enlarged prostate-continue tamsulosin
# 1.6 centimeter cyst in the pancreatic body-outpatient follow-up with GI
# Chronic back pain on meloxicam-with history of GERD should not be taking. Continue tramadol
# DVT prophylaxis-heparin drip- changed to Lovenox
# Full code
Discussed with nursing
Original Note:
Today's Communication/Plan
-
Patient scheduled for VQ scan. Continue heparin drip. Continue antibiotics
Assessment / Plan
Assessment / Plan
Assessment:
68-year-old male with past medical history of GERD, diabetes, pulmonary nodules, osteoarthritis, migraines, peritonitis status post bowel surgery, presented to emergency room after having worsening of cough pleuritic pain with cough, shortness of
breath and chest discomfort and overall fatigue and general unwellness. He had been having the symptoms for the past few months, starting after he had recent travel to [place] and [place]. Patient says that his symptoms worsened a few days ago
after he was smoking some marijuana. He developed a lot of shortness of breath and discomfort afterwards. He has since stopped smoking. Patient has a history of cigarette smoking and former drug abuse with cocaine and crack which she says both of
those he has not partaken in many years. Patient underwent CT to check for pulmonary embolism. Patient was found to have potentially bilateral pulmonary embolism in his bilateral pulmonary arteries. Patient was started on heparin drip. Also was
found to have potential left lung pneumonia. And has a 1.6 cm cyst in the pancreatic body. Patient also complained of headaches after starting heparin. He has a history of migraines due to recent heparin use, patient underwent CT head which did
not show any abnormalities. Pulmonary was consulted, and pulmonary embolism diagnosis was questioned. Patient continues to be on heparin and a V/Q scan is ordered for confirmation.
CT Head W/o Iv Contrast (07/08/2024):
No acute intracranial abnormality noted
CT Chest PE Study (07/07/2024):
1. Bilateral diffuse decreased attenuation throughout the pulmonary arteries in both lungs (left greater than right) involving the lobar and segmental pulmonary arteries suggesting acute bilateral pulmonary arterial embolic disease. However, the
symmetry of the findings and the absence of focal low attenuation thrombus raises the possibility that this could be incomplete mixing of contrast material within the pulmonary arterial system, rather than pulmonary arterial embolic disease.
2. SEVERE LEFT LOWER LOBE BRONCHITIS and mild bronchitis in the upper lobes.
3. 3.1 cm centrilobular airspace consolidation in the superior segment of the left lower lobe and mild centrilobular ground-glass opacity in the superior segment of the lingula which has an appearance most consistent with LEFT LUNG PNEUMONIA.
Acute pulmonary infarcts are considered less likely given the morphology and location of the airspace opacities.
4. Moderately enlarged left hilar lymph node.
5. Mild circumferential wall thickening throughout the distal esophagus suggesting esophagitis.
6. Mild splenomegaly.
7. 1.6 cm cyst in the pancreatic body.
US Periph Venous LOWER Ext Manuel:
No evidence of DVT from the common femoral through the upper calf veins on either side.
Plan:
# Suspected unprovoked bilateral pulmonary artery emboli
-CT PE study as above
-Patient continues to be on heparin drip
-No evidence of DVT as per lower extremity ultrasound
-Pulmonary consulted, input appreciated
-V/Q scan ordered as PE diagnosis was questioned
-Continue current management with heparin
# Severe left lower lobe bronchitis/left lung pneumonia
-Sepsis criteria met/could be due to pulmonary embolism
-COVID/Flu negative
-Lactate levels normal
-Patient continues to be on Rocephin and doxycycline
-Symptoms could be due to pneumonia rather than PE
# GERD
-Continue Protonix
# History of smoking
-Patient has not smoked for several years
#Marijuana Use
-last use was 2 days ago according to patient
-symptoms got worse afterwards
-counseled to not smoke
#Type 2 Diabetes
-Holding metformin
-Insulin sliding scale
# History of migraine
-Continue Lamictal
-Given one-time dose of Fioricet to help with management
#BPH
-Continue Tamsulosin
#Chronic Back pain
-Continue Meloxicam
# Osteoarthritis
# Pulmonary nodule
# History of peritonitis status post bowel surgery
Full Code
DVT Prophylaxis- Heparin Drip
Anticipated Discharge: 24 - 48 hours
Subjective/Interval History
-
Date of Service: July 08, 2024
Patient seen with in room. Patient says that he has been feeling tired and fatigued with the cough. Symptoms have been pretty much the same since he has been in the hospital. Talked about his past drug use and how he had been smoking
marijuana around 2 days ago when his symptoms had worsened. Has not smoked since.
Objective Data
-
Labs:
Laboratory Results
07/08/24 07/08/24 07/08/24
02:59 07:02 09:45
WBC 7.6
Hgb 14.1
Hct 39.9
Plt Count 207
APTT 50.6 H > 200 H*
Sodium 134 L
Potassium 3.9
Chloride 101
Carbon Dioxide 25
BUN 16
Creatinine 1.1
Glucose 122 H
Calcium 9.4
Total Bilirubin 1.3
AST 21
ALT 15
Alkaline Phosphatase 142 H
Vital Signs:
Vital Signs
Temp Pulse Resp BP Pulse Ox
98.0 F 87 20 142/92 98
07/08/24 07:20 07/08/24 07:20 07/08/24 07:20 07/08/24 07:20 07/08/24 07:50
I&O
07/07/24 07/08/24 07/09/24
06:59 06:59 06:59
Output Total 100 / 100
Balance -100 / -100
Review of Systems
-
History Source: Patient
Constitutional: Reports Fatigue and Weakness; Denies Fever or Chills
EENT: Reports No Symptoms Reported
Respiratory: Reports Cough; Denies Trouble Breathing or Wheezing
Cardiac: Denies Chest Pain, Diaphoresis or Palpitations
Abdomen/GI: Denies Abdominal Pain, Nausea or Vomiting
Genitourinary: Reports No Symptoms
Musculoskeletal: Reports No Symptoms
Skin: Reports No Symptoms
Neuro: Reports No Symptoms
Physical Exam
-
General: No Apparent Distress, Comfortable and Conversant
HEENT: Normocephalic and Atraumatic
Respiratory: Clear to Auscultation and Non Labored Respirations
Cardiac: Regular Rhythm and S1/S2
GI: Soft, Nontender and Distended
Musculoskeletal: No Clubbing, No Cyanosis and No Edema
Skin: Warm and Dry
Neuro: Awake, Alert and Oriented
Psych: Calm
Data Reviewed
-
CT Scan: Report Reviewed by me, Discussed with Physician, Discussed with Nurse and Discussed with Patient
Labs: Labs Reviewed by me, Discussed with Physician, Discussed with Nurse, Discussed with Patient and Discussed with Family
[2024-07-08] MEDS: ATROVENT NEBULES 0.5 MG INH ×2 (12:01→20:21)
--- NOTE | 2024-07-08 12:43 | CM ---
Addendum entered by Lisbeth Cartagena 07/08/24 15:53:
CM received consult for cost of Eliquis, spoke with patients pharmacy- no cost for medication per patients insurance coverage.
Original Note:
CM reviewed chart, patient seen with family, initial assessment completed. Patient resides with a friend and friends son in a single story home, five steps to enter, with railing. Patient denies use of DME, VN, or SNF history. Patient PCP
Simone Worrell, pharmacy [facility] , confirms prescription coverage. TT to Physician with PT/OT request per patient. CM will continue to follow for all discharge planning needs.
Plan; home, watch for VN needs
[2024-07-08 12:47] LABS: Procalcitonin < 0.05 ng/ml (0.0-0.25)
[2024-07-08 15:25] VITALS: BP 132/46
[2024-07-08 16:39] LABS: Glucose - Point of Care 210 mg/dl (70-99)
[2024-07-08] MEDS: NOVOLOG FLEXPEN-LOW RESISTANCE 2 UNITS SC (17:11)
[2024-07-08 19:30] VITALS: BP 120/79
[2024-07-08 19:53] LABS: APTT 74.6 Sec (23.4-35.0)
[2024-07-08] MEDS: ROCEPHIN 1000 MG IV (20:35)
[2024-07-08] MEDS: STERILE WATER FOR INJECTION 10 ML IV (20:37)
[2024-07-08] MEDS: LOVENOX 100 MG SC (20:38)
[2024-07-08] MEDS: VIBRAMYCIN 100 MG PO (20:38)
[2024-07-08 21:02] LABS: Glucose - Point of Care 170 mg/dl (70-99)
[2024-07-08 23:30] VITALS: BP 132/88
[2024-07-09 03:12] VITALS: BP 121/79
[2024-07-09] MEDS: DECADRON 4 MG IV ×3 (03:30→20:22)
[2024-07-09] MEDS: NSS 1000 IV (03:31)
[2024-07-09] MEDS: ATIVAN 1 MG PO ×3 (05:59→22:00)
--- NOTE | 2024-07-09 06:52 | W.PN.HOSP.TC ---
Addendum entered and electronically signed by Faviola Galindo MD 07/09/24 15:41:
Seen earlier today. Late documentation
I saw and evaluated the patient. I reviewed the resident�s note and agree with findings and plan as documented in the resident�s note Except for changes in my documentation
68-year-old male with chest pain. Went to [place] 2 weeks ago had a CT scan and was told that he had chronic lung damage. He recently traveled to [place] in April by car
CT chest-bilateral diffuse decreased attenuation throughout pulmonary arteries suggesting bilateral PE. Severe left lower lobe bronchitis and mild bronchitis in the upper lobes. 3.1 cm airspace consolidation in the left lower lobe possibly left
lung pneumonia pulmonary infarcts also considered. Moderately enlarged left hilar lymph node. Mild circumferential wall thickening about the distal esophagus. Mild splenomegaly. 1.6 cm cyst in the pancreatic body
EKG reviewed by me-sinus tachycardia. Left axis deviation echo 07/08/2024-normal biventricular size and systolic function
Echo 07/08/2024-normal biventricular size and systolic function. No wall motion abnormality. No significant valvular abnormality
VQ scan indeterminate
Cardiovascular system S1-S2 appreciated
Chest clear to auscultation
Abdomen soft and nontender
No pedal edema
# Subjective shortness of breath
Likely secondary to bronchitis/pneumonia.
No PE per pulmonary
Therapeutic anticoagulation discontinued
# Severe left lower lobe bronchitis/left lung pneumonia
Currently on ceftriaxone Zithromax
Decadron started
Mucolytic's
Xopenex and ipratropium inhalers
# Diabetes type 2-hemoglobin A1c-
On Trulicity 1.5 mg on Wednesdays.
Restart metformin . Sliding scale coverage with Accu-Cheks
# GERD-continue PPI. Esophagitis on CT. Needs EGD as outpatient-patient aware
# History of pulmonary nodules
# Chronic anxiety-on as needed Ativan, Lamictal
# History of migraines-takes Excedrin ,Fioricet ordered here
# Enlarged prostate-continue tamsulosin
# 1.6 centimeter cyst in the pancreatic body-outpatient follow-up with GI-patient aware
# Chronic back pain on meloxicam-with history of GERD should not be taking. Continue tramadol
# DVT prophylaxis- Lovenox
# Full code
Discussed with nursing
Original Note:
Today's Communication/Plan
-
Continue breathing treatment. Continue antibiotics. Monitor for any worsening oxygen levels
Assessment / Plan
Assessment / Plan
Assessment:
68-year-old male with past medical history of GERD, diabetes, pulmonary nodules, osteoarthritis, migraines, peritonitis status post bowel surgery, presented to emergency room after having worsening of cough pleuritic pain with cough, shortness of
breath and chest discomfort and overall fatigue and general unwellness. He had been having the symptoms for the past few months, starting after he had recent travel to [place] and [place]. Patient says that his symptoms worsened a few days ago
after he was smoking some marijuana. He developed a lot of shortness of breath and discomfort afterwards. He has since stopped smoking. Patient has a history of cigarette smoking and former drug abuse with cocaine and crack which she says both of
those he has not partaken in many years. Patient underwent CT to check for pulmonary embolism. Patient was found to have potentially bilateral pulmonary embolism in his bilateral pulmonary arteries. Patient was started on heparin drip. Also was
found to have potential left lung pneumonia. And has a 1.6 cm cyst in the pancreatic body. Patient also complained of headaches after starting heparin. He has a history of migraines due to recent heparin use, patient underwent CT head which did
not show any abnormalities. Pulmonary was consulted, and pulmonary embolism diagnosis was questioned. VQ scan was indeterminant the patient was switched from heparin drip to Lovenox. Will continue antibiotic treatment as well as breathing
treatments.
CT Head W/o Iv Contrast (07/08/2024):
No acute intracranial abnormality noted
CT Chest PE Study (07/07/2024):
1. Bilateral diffuse decreased attenuation throughout the pulmonary arteries in both lungs (left greater than right) involving the lobar and segmental pulmonary arteries suggesting acute bilateral pulmonary arterial embolic disease. However, the
symmetry of the findings and the absence of focal low attenuation thrombus raises the possibility that this could be incomplete mixing of contrast material within the pulmonary arterial system, rather than pulmonary arterial embolic disease.
2. SEVERE LEFT LOWER LOBE BRONCHITIS and mild bronchitis in the upper lobes.
3. 3.1 cm centrilobular airspace consolidation in the superior segment of the left lower lobe and mild centrilobular ground-glass opacity in the superior segment of the lingula which has an appearance most consistent with LEFT LUNG PNEUMONIA.
Acute pulmonary infarcts are considered less likely given the morphology and location of the airspace opacities.
4. Moderately enlarged left hilar lymph node.
5. Mild circumferential wall thickening throughout the distal esophagus suggesting esophagitis.
6. Mild splenomegaly.
7. 1.6 cm cyst in the pancreatic body.
US Periph Venous LOWER Ext Manuel:
No evidence of DVT from the common femoral through the upper calf veins on either side.
Plan:
# Suspected unprovoked bilateral pulmonary artery emboli
-CT PE study as above
-Patient continues to be on heparin drip
-No evidence of DVT as per lower extremity ultrasound
-Pulmonary consulted, input appreciated
-V/Q scan ordered as PE diagnosis was questioned
-V/Q scan was indeterminate
-Continue Decadron, Atrovent, Xopenex
# Severe left lower lobe bronchitis/left lung pneumonia
-Sepsis criteria met/could be due to pulmonary embolism
-COVID/Flu negative
-Lactate levels normal
-Patient continues to be on Rocephin and doxycycline
-Symptoms could be due to pneumonia rather than PE
-Procalcitonin negative
-Continue fluids
# Hyponatremia
-Most likely due to IV fluids
-Continue monitoring
# GERD
-Continue Protonix
# History of smoking
-Patient has not smoked for several years
#Marijuana Use
-last use was 2 days ago according to patient
-symptoms got worse afterwards
-counseled to not smoke
#Type 2 Diabetes
-Holding metformin
-Insulin sliding scale
# History of migraine
-Continue Lamictal
-Fioricet to help with management, uses Excedrin normally
# Chronic anxiety
-As needed Ativan and Lamictal
#BPH
-Continue Tamsulosin
#Chronic Back pain
-Continue Meloxicam/tramadol
# Osteoarthritis
# Pulmonary nodule
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
# History of peritonitis status post bowel surgery
Full Code
DVT Prophylaxis-Lovenox
Anticipated Discharge: Within 24 hours
Subjective/Interval History
-
Date of Service: July 09, 2024
Patient states that he is feeling a little bit better however he still has the cough that is causing him distress. He reports no symptoms other than the cough which has been productive at times. He does not report any fever or chills or any chest
pain. He does have some shortness of breath that comes with the cough and some pleuritic chest pain as well. Patient wanted oxygen this morning after waking up even though his oxygen saturation was fine.
Objective Data
-
Labs:
Laboratory Results
07/08/24 07/09/24
19:29 06:00
WBC Pending
Hgb Pending
Hct Pending
Plt Count Pending
APTT 74.6 H
Sodium Pending
Potassium Pending
Chloride Pending
Carbon Dioxide Pending
BUN Pending
Creatinine Pending
Glucose Pending
Calcium Pending
Vital Signs:
Vital Signs
Temp Pulse Resp BP Pulse Ox
97.4 F 80 18 121/79 96
07/09/24 03:12 07/09/24 03:12 07/09/24 03:12 07/09/24 03:12 07/09/24 03:12
I&O
07/07/24 07/08/24 07/09/24
06:59 06:59 06:59
Intake Total 1782 178
Output Total 100 / 100 750 / 750
Balance -100 / -100 1033 / 1033
Review of Systems
-
History Source: Patient
Constitutional: Reports Fatigue and Weakness; Denies Fever or Chills
EENT: Reports No Symptoms Reported
Respiratory: Reports Cough; Denies Trouble Breathing or Wheezing
Cardiac: Denies Chest Pain, Diaphoresis or Palpitations
Abdomen/GI: Denies Abdominal Pain, Nausea or Vomiting
Genitourinary: Reports No Symptoms
Musculoskeletal: Reports No Symptoms
Skin: Reports No Symptoms
Neuro: Reports No Symptoms
Physical Exam
-
General: Comfortable, Respiratory Distress and Conversant
HEENT: Normocephalic and Atraumatic
Respiratory: Clear to Auscultation and Non Labored Respirations
Cardiac: Regular Rhythm and S1/S2
GI: Soft, Nontender and Distended
Musculoskeletal: No Clubbing, No Cyanosis and No Edema
Skin: Warm and Dry
Neuro: Awake, Alert and Oriented
Psych: Calm
Data Reviewed
-
Labs: Labs Reviewed by me, Discussed with Physician, Discussed with Nurse and Discussed with Patient
[2024-07-09] MEDS: ATROVENT NEBULES 0.5 MG INH ×3 (07:38→19:11)
[2024-07-09] MEDS: XOPENEX 1.25 MG INHALANT SOLUTION INH ×3 (07:38→19:11)
[2024-07-09 07:40] VITALS: BP 126/88
[2024-07-09 08:04] LABS: Glucose - Point of Care 152 mg/dl (70-99)
[2024-07-09 08:48] LABS: Hematocrit 39.5 % (39.0-52.0); Hemoglobin 13.7 g/dL (13.0-18.0); Mean Corp Hgb Conc. 34.7 g/dL (33.0-37.0); Mean Corpuscular Volume 92.3 fL (80.0-94.0); Platelet Count 220 10^3/uL (130-400); Red Blood Cell Count 4.28 10^6/uL (4.70-6.10); Red Cell Dist. Width 13.2 % (11.5-14.5); White Blood Cell Count 5.8 10^3/uL (4.8-10.8)
[2024-07-09] MEDS: NOVOLOG FLEXPEN-LOW RESISTANCE 1 UNITS SC (08:52)
[2024-07-09] MEDS: FLOMAX 0.4 MG PO (08:53)
[2024-07-09] MEDS: NSS (PRESERVATIVE FREE) 10 ML IV (08:54)
[2024-07-09] MEDS: ULTRAM 50 MG PO ×3 (08:54→22:00)
[2024-07-09] MEDS: MUCINEX 1200 MG PO ×2 (08:54→20:21)
[2024-07-09] MEDS: PROTONIX IV 40 MG IV (08:54)
[2024-07-09] MEDS: VIBRAMYCIN 100 MG PO ×2 (08:55→20:21)
[2024-07-09] MEDS: MOBIC 7.5 MG PO (08:55)
[2024-07-09] MEDS: LOVENOX 100 MG SC (08:55)
[2024-07-09] MEDS: LAMICTAL 25 MG PO (09:05)
--- NOTE | 2024-07-09 09:27 | W.PN.PUL.V3 ---
Today's Communication / Plan
-
Respiratory decompensation likely COPD/bronchitis with acute exacerbation and unlikely acute pulmonary embolism
VQ scan-acute pulmonary embolism unlikely with no perfusion defects
Lower extremity ultrasound negative for DVT
Could change Lovenox to 40 mg daily
Continue nebs/Decadron/mucolytic's/
Consider discontinuing antibiotics with procalcitonin negative
Assessment
-
66-year-old male former smoker with underlying diabetes, pulmonary nodule, GERD, osteoarthritis, migraine, peritonitis status post bowel surgery as well as former drug abuse presented with several week history of cough, shortness of breath, atypical
chest pains, nonproductive cough and found to have possible pulmonary emboli-pulmonary consulted for questionable pulmonary embolism/shortness of breath 07/08/2024.
Questionable pulmonary emboli
Puyjvuler-[id number]-ydyhqfkh
COPD with mild acute exacerbation
Mild leukocytosis
Conditions present prior to admission:
COPD
Former smoker.
GERD.
Diabetes.
Pulmonary nodule--unclear specifics, receives CT chest [place] for lung cancer screening by primary
Osteoarthritis.
Migraines. Peritonitis/bowel surgery. Former drug abuse-cocaine/marijuana.
Plan
Respiratory decompensation over the last 3 weeks likely related to respiratory tract infection possibly viral initially and now bacterial as well as probable underlying COPD with acute exacerbation and less likely venous thromboembolic disease
Supplemental oxygen as needed-2 L 98% saturation
Mucolytic's-on Mucinex
Nebulizers-Xopenex 3 times daily as well as ipratropium bromide 3 times daily
Decadron 4 mg IV every 8 hours-no change today-begin to taper in the next 24 hours if continues to improve
Outpatient inhalers will be recommended-triple therapy in addition to prednisone taper
Bedside PFT-07/08/2024-FEV1 2.2-66%, FVC 3.36-76%, 17% BD response-moderate obstruction
CT chest reviewed-not convinced patient has significant venous thromboembolic disease
VQ scan 07/08/2024-intermediate, perfusion images of the lungs were obtained demonstrating no ventilation/perfusion abnormalities to suggest pulmonary emboli, 2 small matched posterior left lower lobe abnormalities in the region of airspace disease
on his recent chest x-ray, no unmatched perfusion defects to suggest presence of pulmonary emboli
Lower extremity ultrasound 07/08/2024-no evidence for DVT on either side
Could change Lovenox 1 mg/kg every 12 hours to 40 mg daily
Cultures reviewed
Sputum culture-usual respiratory simona
MRSA screen negative
Influenza negative
Empiric antibiotics-ceftriaxone and doxycycline
Procalcitonin negative-consider observing off at biotics
Follow leukocytosis
DVT prophylaxis-on Lovenox
GI prophylaxis-on PPI
Reviewed with significant other at the bedside
Outpatient pulmonary follow-up recommended-PFTs, inhalers, ongoing smoking cessation counseling, and yearly low-dose lung cancer screening CT, sleep apnea workup
Diagnostic data:
Chest x-ray 03/10/2024-minimal opacifications left base otherwise clear
Chest x-ray 07/07/2024-mild asymmetrical airspace disease left midlung field consistent with mild pneumonia, decreased bilateral lung volumes
CT chest 07/07/2024-bilateral diffuse decreased attenuation through pulmonary arteries in both lungs involving the lobar and segmental pulmonary arteries suggesting acute bilateral pulmonary emboli, symmetry of the findings in the absence of focal
low-attenuation thrombus raises the possibility this is a false positive finding, severe left lower lobe bronchitis, 3.1 cm centrilobular airspace disease superior segment left lower lobe and mild centrilobular groundglass opacification in the
lingula consistent with pneumonia, moderate enlarged left hilar lymph node, 1.6 cm pancreatic cyst, esophagitis
Lower extremity ultrasound 07/08/2024-no evidence for DVT bilaterally
Echocardiogram 07/08/2024-normal biventricular size and systolic function, EF 50-55%, normal diastolic function, no significant valvular disease
Subjective Data
-
Date of Service:
Date of Service: July 09, 2024
Chief Complaint: Pulmonary Follow Up and Dyspnea Follow Up
Subjective:
Still with cough mostly nonproductive, no chest pain, pleurisy, hemoptysis, abdominal pain or leg swelling
Review of Systems
General: Other (Per HPI)
Objective Data
Data Reviewed
Vital Signs / I&O:
Vital Signs
Temp Pulse Resp BP Pulse Ox
96.6 F L 77 20 126/88 93
07/09/24 07:40 07/09/24 07:40 07/09/24 07:40 07/09/24 07:40 07/09/24 07:40
Intake and Output
07/08/24 07/09/24 07/10/24
06:59 06:59 06:59
Intake Total 1783 / 1783
Output Total 100 / 100 750 / 750
Balance -100 / -100 1033 / 1033
SaO2: 93
Nasal Cannula flow liters per minute: 2
Physical Exam
General: Respiratory Distress (n) and Comfortable
HEENT: Normocephalic, Anicteric and Moist Mucous Membranes
Cardiovascular: Regular Rhythm
Respiratory: Clear (Diminished breath sounds and prolonged expiratory time), Wheeze (n), Crackles (n), Rhonchi, Non-Labored Respirations, Accessory Resp Muscle Use (n) and Stridor (n)
GI: Soft, Non Distended and Non Tender
Neurology: Awake, Alert and No Motor Deficits
Skin: Warm, Good Color, Cyanosis (n) and Jaundice (n)
Labs/Micro/Reports
Lab Data
07/09/24 07:05
Laboratory Results
07/08/24 07/08/24
09:45 19:29
APTT > 200 H* 74.6 H
Microbiology
07/08/24 02:49 Nose MRSA Screen - Final
No Methicillin Resistant Staphylococcus aureus isolated.
07/08/24 12:25 Sputum Gram Stain - Preliminary
07/07/24 16:23 Nasal Swab Influenza Types A & B (ONEL) - Final
Negative for Influenza A & B, NAAT
Negative results must be combined with clinical observations
and patient history.
Nucleic Acid Amplification test (NAAT)performed on the
[employer] platform.
[2024-07-09 09:30] LABS: Blood Urea Nitrogen 18 mg/dl (9-20); Calcium 9.5 mg/dl (8.4-10.2); Carbon Dioxide 23 mmol/L (22-30); Chloride 103 mmol/L (98-107); Estimated Creatinine Clearance 99 ml/min; Glucose 154 mg/dl (70-99); Potassium 4.4 mmol/L (3.5-5.1); Sodium 136 mmol/L (135-145); eGFR > 60.00
[2024-07-09 11:11] VITALS: BP 128/51
[2024-07-09 11:53] LABS: Glucose - Point of Care 144 mg/dl (70-99)
[2024-07-09] MEDS: NOVOLOG FLEXPEN-LOW RESISTANCE SC (11:56)
[2024-07-09 14:26] VITALS: O2SAT 95
[2024-07-09 15:44] VITALS: BP 131/87
[2024-07-09] MEDS: GLUCOPHAGE XR EXTENDED RELEASE 500 MG PO (16:43)
[2024-07-09 16:47] LABS: Glucose - Point of Care 244 mg/dl (70-99)
[2024-07-09] MEDS: NOVOLOG FLEXPEN-LOW RESISTANCE 2 UNITS SC (16:49)
[2024-07-09] MEDS: FIORICET 1 TAB PO (16:51)
[2024-07-09] MEDS: ROCEPHIN 1000 MG IV (20:22)
[2024-07-09] MEDS: STERILE WATER FOR INJECTION 10 ML IV (20:22)
[2024-07-09 21:59] LABS: Glucose - Point of Care 169 mg/dl (70-99)
[2024-07-09] MEDS: LOVENOX 40 MG SC (22:02)
[2024-07-09] MEDS: ANESTHETIC LOZENGE 1 LOZENGE PO (22:19)
[2024-07-09] MEDS: TESSALON PERLES 100 MG PO (22:19)
[2024-07-09 23:58] VITALS: BP 147/91
[2024-07-10] MEDS: DECADRON 4 MG IV (04:23)
[2024-07-10] MEDS: ATIVAN 1 MG PO ×3 (05:37→22:05)
[2024-07-10 07:00] VITALS: BP 125/80
[2024-07-10 07:16] LABS: Glucose - Point of Care 145 mg/dl (70-99)
[2024-07-10] MEDS: NOVOLOG FLEXPEN-LOW RESISTANCE SC ×2 (08:06→16:35)
[2024-07-10] MEDS: FLOMAX 0.4 MG PO (08:07)
[2024-07-10] MEDS: ULTRAM 50 MG PO ×3 (08:07→22:06)
[2024-07-10] MEDS: GLUCOPHAGE XR EXTENDED RELEASE 500 MG PO ×2 (08:07→16:51)
[2024-07-10] MEDS: VIBRAMYCIN 100 MG PO ×2 (08:08→19:49)
[2024-07-10] MEDS: MUCINEX 1200 MG PO ×2 (08:08→19:49)
[2024-07-10] MEDS: MOBIC 7.5 MG PO (08:08)
[2024-07-10] MEDS: PROTONIX IV 40 MG IV (08:08)
[2024-07-10] MEDS: NSS (PRESERVATIVE FREE) 10 ML IV (08:08)
[2024-07-10] MEDS: ANESTHETIC LOZENGE 1 LOZENGE PO ×3 (08:09→16:56)
[2024-07-10] MEDS: TESSALON PERLES 100 MG PO ×2 (08:09→12:04)
[2024-07-10] MEDS: ATROVENT NEBULES 0.5 MG INH ×3 (09:07→19:50)
[2024-07-10] MEDS: XOPENEX 1.25 MG INHALANT SOLUTION INH ×2 (09:08→13:56)
[2024-07-10 11:35] LABS: Glucose - Point of Care 155 mg/dl (70-99)
--- NOTE | 2024-07-10 11:50 | W.PN.HOSP.TC ---
Today's Communication/Plan
-
Change steroids to PO
Discharge planning for discharge tomorrow
Assessment / Plan
Assessment / Plan
68-year-old male with chest pain. Went to [place] 2 weeks ago had a CT scan and was told that he had chronic lung damage. He recently traveled to [place] in April by car
CT chest-bilateral diffuse decreased attenuation throughout pulmonary arteries suggesting bilateral PE. Severe left lower lobe bronchitis and mild bronchitis in the upper lobes. 3.1 cm airspace consolidation in the left lower lobe possibly left
lung pneumonia pulmonary infarcts also considered. Moderately enlarged left hilar lymph node. Mild circumferential wall thickening about the distal esophagus. Mild splenomegaly. 1.6 cm cyst in the pancreatic body
EKG reviewed by me-sinus tachycardia. Left axis deviation echo 07/08/2024-normal biventricular size and systolic function
Echo 07/08/2024-normal biventricular size and systolic function. No wall motion abnormality. No significant valvular abnormality
VQ scan indeterminate
Cardiovascular system S1-S2 appreciated
Chest clear to auscultation- few scattered ronchi
Abdomen soft and nontender
No pedal edema
# Subjective shortness of breath
Likely secondary to bronchitis/pneumonia.
No PE per pulmonary
Therapeutic anticoagulation discontinued
# Severe left lower lobe bronchitis/left lung pneumonia
Currently on ceftriaxone Zithromax, change to PO at discharge
Decadron started- change to prednisone
Mucolytic's
Xopenex and ipratropium inhalers
# Diabetes type 2-hemoglobin A1c-5.7
On Trulicity 1.5 mg on Wednesdays.
Restart metformin . Sliding scale coverage with Accu-Cheks
# GERD-continue PPI. Esophagitis on CT. Needs EGD as outpatient-patient aware
# History of pulmonary nodules
# Chronic anxiety-on as needed Ativan, Lamictal
# History of migraines-takes Excedrin ,Fioricet ordered here
# Enlarged prostate-continue tamsulosin
# 1.6 centimeter cyst in the pancreatic body-outpatient follow-up with GI-patient aware
# Chronic back pain on meloxicam-with history of GERD should be taking. Changed to PRN. Continue tramadol
# DVT prophylaxis- Lovenox
# Full code
Anticipated Discharge: Within 24 hours
Subjective/Interval History
-
Date of Service: July 10, 2024
Objective Data
-
Vital Signs:
Vital Signs
Temp Pulse Resp BP Pulse Ox
97.6 F 92 16 125/80 98
07/10/24 07:00 07/10/24 09:16 07/10/24 09:16 07/10/24 07:00 07/10/24 09:16
I&O
07/09/24 07/10/24 07/11/24
06:59 06:59 06:59
Intake Total 1783 / 1783 960 / 960
Output Total 750 / 750
Balance 1033 / 1033 960 / 960
[2024-07-10] MEDS: NOVOLOG FLEXPEN-LOW RESISTANCE 1 UNITS SC (12:06)
[2024-07-10 15:00] VITALS: BP 148/54
[2024-07-10 15:27] LABS: Glucose - Point of Care 128 mg/dl (70-99)
--- NOTE | 2024-07-10 16:44 | W.PN.PUL3 ---
Today's Communication / Plan
-
Respiratory decompensation likely COPD/bronchitis with acute exacerbation and unlikely acute pulmonary embolism
VQ scan-acute pulmonary embolism unlikely with no perfusion defects
Lower extremity ultrasound negative for DVT
Continue with Antitussants --> changed Tessalon Perles from prn to scheduled and raise dose to 200 mg
Start promethazine/codeine cough syrup prn
DC Xopenex nebs and start Symbicort 160mcg BID; continue Atrovent
He should be discharged home on a LABA/ICS with Symbicort 160 mcg versus Advair 250mcg vs equivalent inhaler, and use this until his symptoms resolve
Continue with prn DuoNebs once back home
Continue chemical DVT ppx
Complete 7 days of antibiotics and consider changing doxycycline to Zithromax for its anti-inflammatory effects
Assessment
-
66-year-old male former smoker with underlying diabetes, pulmonary nodule, GERD, osteoarthritis, migraine, peritonitis status post bowel surgery as well as former drug abuse presented with several week history of cough, shortness of breath, atypical
chest pains, nonproductive cough and found to have possible pulmonary emboli-pulmonary consulted for questionable pulmonary embolism/shortness of breath 07/08/2024.
Questionable pulmonary emboli with indeterminate VQ scan
Ftwardjjh-ufdueolcb-pvginmgc pneumonia of left base
COPD with acute exacerbation
Coughing spells
Mild leukocytosis now resolved
Conditions present prior to admission:
COPD
Former smoker.
GERD.
Diabetes.
Pulmonary nodule--unclear specifics, receives CT chest [facility] for lung cancer screening by primary
Osteoarthritis.
Migraines. Peritonitis/bowel surgery. Former drug abuse-cocaine/marijuana.
Plan
Respiratory decompensation over the last 3 weeks likely related to respiratory tract infection possibly viral initially and now bacterial as well as probable underlying COPD with acute exacerbation and less likely venous thromboembolic disease
Supplemental oxygen as needed-now on room air breathing comfortably, saturating 95%
Mucolytics-on Mucinex
Nebulizers-continue with Atrovent but due to coughing spells I will change Xopenex to Symbicort 160 mcg and change Tessalon Perles from prn to scheduled and start promethazine/codeine prn
Decadron 4 mg IV every 8 hours - tomorrow please change the prednisone 50 mg daily with taper by 10 mg every fourth day
Outpatient inhalers will be recommended-possibly triple therapy in addition to prednisone taper - this will be discussed in the outpatient setting
Bedside PFT-07/08/2024-FEV1 2.2-66%, FVC 3.36-76%, 17% BD response-moderate obstruction
CTA chest reviewed-not convinced patient has significant venous thromboembolic disease
VQ scan 07/08/2024-indeterminate - perfusion images of the lungs were obtained demonstrating no ventilation/perfusion abnormalities to suggest pulmonary emboli, 2 small matched posterior left lower lobe abnormalities in the region of airspace disease
on his recent chest x-ray, no unmatched perfusion defects to suggest presence of pulmonary emboli
Lower extremity ultrasound 07/08/2024-no evidence for DVT on either side
Cultures reviewed
Sputum culture-usual respiratory simona
MRSA screen negative
Influenza negative
Empiric antibiotics-ceftriaxone and doxycycline; would change doxy to zithromax for its anti-inflammatory effect, and would complete 7 days total of Abx
Procalcitonin negative
Trend WBC
DVT prophylaxis-on Lovenox
GI prophylaxis-n/a --> continue PPI (home med) but change from IV to PO
Reviewed with significant other at the bedside
Outpatient pulmonary follow-up recommended-PFTs, inhalers, ongoing smoking cessation counseling, and yearly low-dose lung cancer screening CT, sleep apnea workup
Diagnostic data:
Chest x-ray 03/10/2024-minimal opacifications left base otherwise clear
Chest x-ray 07/07/2024-mild asymmetrical airspace disease left midlung field consistent with mild pneumonia, decreased bilateral lung volumes
CT chest 07/07/2024-bilateral diffuse decreased attenuation through pulmonary arteries in both lungs involving the lobar and segmental pulmonary arteries suggesting acute bilateral pulmonary emboli, symmetry of the findings in the absence of focal
low-attenuation thrombus raises the possibility this is a false positive finding, severe left lower lobe bronchitis, 3.1 cm centrilobular airspace disease superior segment left lower lobe and mild centrilobular groundglass opacification in the
lingula consistent with pneumonia, moderate enlarged left hilar lymph node, 1.6 cm pancreatic cyst, esophagitis
Lower extremity ultrasound 07/08/2024-no evidence for DVT bilaterally
Echocardiogram 07/08/2024-normal biventricular size and systolic function, EF 50-55%, normal diastolic function, no significant valvular disease
Total time spent today was 37 minutes for this encounter. Time includes reviewing laboratory test/imaging results, reviewing pertinent medical records, obtaining and reviewing medical history, performing an appropriate exam, ordering medications,
tests and procedures. Time also includes documentation of this encounter, coordinating patient care and communicating with other healthcare professionals. Total time does not include separately billed tests performed on this date of service.
Subjective Data
-
Date of Service:
Date of Service: July 10, 2024
Chief Complaint: Pulmonary Follow Up and Dyspnea Follow Up
Subjective:
Patient seen and evaluated today at bedside (late note entry). He is having coughing fits and this is leading to pain with back spasms and neck discomfort. He is currently on room air breathing comfortably, saturating 95%. Otherwise denies chest
pain, RIZVI, nausea, fevers or chills.
Review of Systems
General: Other (Negative unless mentioned above)
Objective Data
Data Reviewed
Vital Signs / I&O / Oxygen:
Vital Signs
Temp Pulse Resp BP Pulse Ox
97.6 F 92 16 125/80 98
07/10/24 07:00 07/10/24 09:16 07/10/24 09:16 07/10/24 07:00 07/10/24 09:16
Intake and Output
07/09/24 07/10/24 07/11/24
06:59 06:59 06:59
Intake Total 1783 / 1783 960 / 960
Output Total 750 / 750
Balance 1033 / 1033 960 / 960
SaO2 98
Nasal Cannula flow liters per 2
minute
Physical Exam
General: Respiratory Distress (n), Comfortable, Chills (n) and Sweats (n)
HEENT: Normocephalic, Anicteric and Moist Mucous Membranes
Cardiovascular: S1-S2 and Peripheral Edema (n)
Respiratory: Wheeze (n), Crackles (Left base), Rhonchi (n), Non-Labored Respirations, Accessory Resp Muscle Use (n), Stridor (n) and Other (Diminished breath sounds bilaterally and prolonged expiratory time)
GI: Soft, Non Distended, Non Tender and Normal Bowel Sounds
Neurology: AO x 3 and Tremors (n)
Skin: Warm, Dry, Cyanosis (n) and Jaundice (n)
Labs/Micro/Reports
Lab Data
07/09/24 07:05
07/09/24 07:05
Microbiology
07/08/24 12:25 Sputum Respiratory Culture - Preliminary
Usual Respiratory Simona
07/08/24 12:25 Sputum Gram Stain - Preliminary
07/08/24 02:49 Nose MRSA Screen - Final
No Methicillin Resistant Staphylococcus aureus isolated.
07/07/24 16:23 Nasal Swab Influenza Types A & B (ONEL) - Final
Negative for Influenza A & B, NAAT
Negative results must be combined with clinical observations
and patient history.
Nucleic Acid Amplification test (NAAT)performed on the
[employer] platform.
[2024-07-10] MEDS: FIORICET 1 TAB PO (17:39)
[2024-07-10] MEDS: ROCEPHIN 1000 MG IV (19:48)
[2024-07-10] MEDS: STERILE WATER FOR INJECTION 10 ML IV (19:48)
[2024-07-10] MEDS: SYMBICORT 160/4.5 MCG INHALER 2 PUFF INH (19:50)
[2024-07-10] MEDS: PHENERGAN WITH CODEINE SYRUP 10 ML PO (20:21)
[2024-07-10] MEDS: TESSALON PERLES 200 MG PO (22:05)
[2024-07-10] MEDS: LOVENOX 40 MG SC (22:11)
[2024-07-10 23:00] VITALS: BP 119/67
[2024-07-10 23:09] LABS: Glucose - Point of Care 133 mg/dl (70-99)
[2024-07-11] MEDS: ATIVAN 1 MG PO (05:26)
[2024-07-11 07:00] VITALS: BP 140/83
[2024-07-11 07:14] LABS: Hematocrit 37.9 % (39.0-52.0); Hemoglobin 13.2 g/dL (13.0-18.0); Mean Corp Hgb Conc. 34.8 g/dL (33.0-37.0); Mean Corpuscular Volume 91.8 fL (80.0-94.0); Mean Platelet Volume 9.9 fL (7.4-10.4); Platelet Count 211 10^3/uL (130-400); Red Blood Cell Count 4.13 10^6/uL (4.70-6.10); Red Cell Dist. Width 13.5 % (11.5-14.5)
[2024-07-11 07:19] LABS: Glucose - Point of Care 101 mg/dl (70-99)
[2024-07-11] MEDS: SYMBICORT 160/4.5 MCG INHALER 2 PUFF INH (07:30)
[2024-07-11] MEDS: ATROVENT NEBULES 0.5 MG INH ×2 (07:30→14:10)
[2024-07-11] MEDS: NOVOLOG FLEXPEN-LOW RESISTANCE SC ×2 (08:13→12:41)
[2024-07-11] MEDS: TESSALON PERLES 200 MG PO (08:14)
[2024-07-11] MEDS: FLOMAX 0.4 MG PO (08:14)
[2024-07-11] MEDS: DELTASONE 50 MG PO (08:14)
[2024-07-11] MEDS: ULTRAM 50 MG PO (08:14)
[2024-07-11] MEDS: MUCINEX 1200 MG PO (08:14)
[2024-07-11] MEDS: VIBRAMYCIN 100 MG PO (08:14)
[2024-07-11] MEDS: PROTONIX IV 40 MG IV (08:16)
[2024-07-11] MEDS: NSS (PRESERVATIVE FREE) 10 ML IV (08:18)
[2024-07-11] MEDS: GLUCOPHAGE XR EXTENDED RELEASE 500 MG PO (08:19)
[2024-07-11] MEDS: FIORICET 1 TAB PO (08:23)
[2024-07-11] MEDS: CEFTIN 500 MG PO (11:06)
[2024-07-11] MEDS: ZITHROMAX 500 MG PO (11:06)
[2024-07-11 11:21] LABS: Glucose - Point of Care 134 mg/dl (70-99)
--- NOTE | 2024-07-11 14:14 | W.PN.HOSP.TC ---
Today's Communication/Plan
-
Discharge
Assessment / Plan
Assessment / Plan
68-year-old male with chest pain. Went to [place] [address] scan and was told that he had chronic lung damage. He recently traveled to [place] in April by car
CT chest-bilateral diffuse decreased attenuation throughout pulmonary arteries suggesting bilateral PE. Severe left lower lobe bronchitis and mild bronchitis in the upper lobes. 3.1 cm airspace consolidation in the left lower lobe possibly left
lung pneumonia pulmonary infarcts also considered. Moderately enlarged left hilar lymph node. Mild circumferential wall thickening about the distal esophagus. Mild splenomegaly. 1.6 cm cyst in the pancreatic body
EKG reviewed by me-sinus tachycardia. Left axis deviation echo 07/08/2024-normal biventricular size and systolic function
Echo 07/08/2024-normal biventricular size and systolic function. No wall motion abnormality. No significant valvular abnormality
VQ scan indeterminate
Cardiovascular system S1-S2 appreciated
Chest clear to auscultation- CTA
Abdomen soft and nontender
No pedal edema
# Subjective shortness of breath
Likely secondary to bronchitis/pneumonia.
No PE per pulmonary
Therapeutic anticoagulation discontinued
Antibiotics changed to p.o.
# Severe left lower lobe bronchitis/left lung pneumonia
Currently on ceftriaxone Zithromax, change to PO at discharge
Decadron - changed to prednisone
Mucolytic's
Xopenex and ipratropium inhalers
Patient feels Much better with promethazine with codeine cough syrup
# Diabetes type 2-hemoglobin A1c-5.7
On Trulicity 1.5 mg on Wednesdays.
Continue metformin . Sliding scale coverage with Accu-Cheks
# GERD-continue PPI. Esophagitis on CT. Needs EGD as outpatient-patient aware
# History of pulmonary nodules
# Chronic anxiety-on as needed Ativan, Lamictal
# History of migraines-takes Excedrin ,Fioricet ordered here
# Enlarged prostate-continue tamsulosin
# 1.6 centimeter cyst in the pancreatic body-outpatient follow-up with GI-patient aware
# Chronic back pain on meloxicam-with history of GERD should be taking. Changed to PRN. Continue tramadol
# DVT prophylaxis- Lovenox
# Full code
D/W RN
Follow-up care discussed with the patient
More than 30 minutes spent in discharge including
Final examination of the patient
Summarizing hospital stay
Instructions for continuing care to all relevant caregivers
Preparation of discharge records, prescriptions, and referral forms
Total time spent (in minutes): 36 mi
Anticipated Discharge: Today
Subjective/Interval History
-
Date of Service: July 11, 2024
Objective Data
-
Labs:
Laboratory Results
07/11/24
06:15
WBC 7.0
Hgb 13.2
Hct 37.9 L
Plt Count 211
Vital Signs:
Vital Signs
Temp Pulse Resp BP Pulse Ox
97.8 F 93 16 140/83 96
07/11/24 07:00 07/11/24 14:13 07/11/24 14:13 07/11/24 07:00 07/11/24 14:13
I&O
07/10/24 07/11/24 07/12/24
06:59 06:59 06:59
Intake Total 960 / 960 240 / 240
Balance 960 / 960 240 / 240
--- NOTE | 2024-07-11 14:23 | W.DS.TRANS ---
Addendum entered and electronically signed by Faviola Galindo MD 07/11/24 15:52:
Dictation- [id number]
Original Note:
DC Summary - [employer]
-
Discharge Instructions:
Discharge Diagnosis/Procedures Severe left lower lobe bronchitis/left lung
pneumonia
Diabetes type 2
GERD
Anxiety
Migraines
Enlarged prostate
1.6 cm cyst in the pancreatic body
Chronic back pain
Diet Diabetic, Carb Controlled
Activity As tolerated,No restrictions
Driving Restrictions As prior to admission
Bathing Restrictions None
Others Tests Esophagitis on CT thickening of the esophagus.
Needs endoscopy as outpatient. Follow-up with
your GI doctor
MRI of the pancreas as outpatient
Instructions:
Stand-Alone Forms:
Changes to Home Medications: Yes
Discharge Medications:
DC Medications w/original date entered in [facility]
albuterol sulfate 90 mcg/actuation aerosol inhaler 2 puff inhalation R Q6HPRN PRN sob 07/07/24
dulaglutide 1.5 mg/0.5 mL subcutaneous pen injector (Trulicity) 1.5 mg SC WE Diabetes 07/07/24
furosemide 20 mg tablet 20 mg PO DAILY Fluid Retention/Swelling 07/07/24
ipratropium 0.5 mg-albuterol 3 mg (2.5 mg base)/3 mL nebulization soln 3 ml inhalation R Q4HPRN PRN sob 07/07/24
lamotrigine 25 mg tablet 25 mg PO MOWEFR Mental Health/Anxiety 07/07/24
lorazepam 1 mg tablet 1 mg PO TID Mental Health/Anxiety 07/07/24
metformin 500 mg tablet,extended release 24 hr 500 mg PO BID Diabetes 07/07/24
omeprazole 40 mg capsule,delayed release 40 mg PO DAILY Gastrointestinal Issue 07/07/24
peg 400-propylene glycol (PF) 0.4 %-0.3 % eye drops in a dropperette (Systane (PF)) 1 drp BOTH EYES Q4HPRN PRN dry eyes 07/07/24
tamsulosin 0.4 mg capsule 0.4 mg PO DAILY Urinary Issue 07/07/24
tramadol 50 mg tablet 50 mg PO TID Pain 07/07/24
azithromycin 500 mg tablet (Zithromax) 500 mg PO DAILY Lung/breathing issues 3 days #3 tabs 07/11/24
benzonatate 100 mg capsule 200 mg (2 x 100 mg) PO TID PRN cough #30 caps 07/11/24
budesonide-formoterol HFA 160 mcg-4.5 mcg/actuation aerosol inhaler (Symbicort) 2 puff inhalation R BID Lung/breathing issues #10.2 grams 07/11/24
cefuroxime axetil 500 mg tablet 500 mg PO BID Infection #8 tabs 07/11/24
guaifenesin 600 mg tablet, extended release 12 hr 600 mg PO Q12 Lung/breathing issues #0 tabs 07/11/24
meloxicam 7.5 mg tablet 7.5 mg PO DAILY PRN Pain #0 tabs 07/11/24
promethazine 6.25 mg-codeine 10 mg/5 mL syrup 5 ml PO Q4HPRN PRN coughing spell #118 mL 07/11/24
Home Medication Changes
New
Promethazine with codeine
Guaifenesin
Cefuroxime
Symbicort
Tessalon
Zithromax
Pending Results: No
--- NOTE | 2024-07-11 15:21 | PTCARENOTE ---
Patient went over discharge paperwork, waiting on MD to transfer medication scripts to [facility]. Patient states he will ring when his ride gets to the room. When PCT went to get vital signs prior to discharge, patient was not in room and belongings with
discharge packet were gone. Patient left hospital without notifying staff.
--- NOTE | 2024-07-11 15:50 | W.PN.PUL3 ---
Today's Communication / Plan
-
Respiratory decompensation likely COPD/bronchitis with acute exacerbation and unlikely acute pulmonary embolism
VQ scan-acute pulmonary embolism unlikely with no perfusion defects
Lower extremity ultrasound negative for DVT
Continue with Antitussants --> changed Tessalon Perles from prn to scheduled and raise dose to 200 mg
Continue promethazine/codeine cough syrup prn
DC Xopenex nebs and continue Symbicort 160mcg BID; continue Atrovent
He should be discharged home on a LABA/ICS with Symbicort 160 mcg versus Advair 250mcg vs equivalent inhaler, and use this until his symptoms resolve
Continue with prn DuoNebs once back home
Continue chemical DVT ppx
Complete 7 days of antibiotics and consider changing doxycycline to Zithromax for its anti-inflammatory effects
Assessment
-
66-year-old male former smoker with underlying diabetes, pulmonary nodule, GERD, osteoarthritis, migraine, peritonitis status post bowel surgery as well as former drug abuse presented with several week history of cough, shortness of breath, atypical
chest pains, nonproductive cough and found to have possible pulmonary emboli-pulmonary consulted for questionable pulmonary embolism/shortness of breath 07/08/2024.
Impression:
Questionable pulmonary emboli with indeterminate VQ scan
Cmwgrfryj-itvxgwluv-ikckevbg pneumonia of left base
COPD with acute exacerbation
Coughing spells
Mild leukocytosis now resolved
Conditions present prior to admission:
COPD
Former smoker.
GERD.
Diabetes.
Pulmonary nodule--unclear specifics, receives CT chest [place] for lung cancer screening by primary
Osteoarthritis.
Migraines. Peritonitis/bowel surgery. Former drug abuse-cocaine/marijuana.
Plan
Respiratory decompensation over the last 3 weeks likely related to respiratory tract infection possibly viral initially and now bacterial as well as probable underlying COPD with acute exacerbation and less likely venous thromboembolic disease
Supplemental oxygen as needed-now on room air breathing comfortably, saturating 95%
Mucolytics-on Mucinex
Nebulizers-continue with Atrovent but due to coughing spells I changed Xopenex to Symbicort 160 mcg and changed Tessalon Perles from prn to scheduled and started promethazine/codeine prn
Decadron 4 mg IV every 8 hours - toda, please change to prednisone 50 mg daily with taper by 10 mg every fourth day
Outpatient inhalers will be recommended-possibly triple therapy in addition to prednisone taper - this will be discussed in the outpatient setting
Bedside PFT-07/08/2024-FEV1 2.2-66%, FVC 3.36-76%, 17% BD response-moderate obstruction
CTA chest reviewed-not convinced patient has significant venous thromboembolic disease
VQ scan 07/08/2024-indeterminate - perfusion images of the lungs were obtained demonstrating no ventilation/perfusion abnormalities to suggest pulmonary emboli, 2 small matched posterior left lower lobe abnormalities in the region of airspace disease
on his recent chest x-ray, no unmatched perfusion defects to suggest presence of pulmonary emboli
Lower extremity ultrasound 07/08/2024-no evidence for DVT on either side
Cultures reviewed
Sputum culture-usual respiratory simona
MRSA screen negative
Influenza negative
Empiric antibiotics-ceftriaxone and doxycycline; would change doxy to zithromax for its anti-inflammatory effect, and would complete 7 days total of Abx
Procalcitonin negative
Trend WBC
DVT prophylaxis-on Lovenox
GI prophylaxis-n/a --> continue PPI (home med)
Reviewed with significant other at the bedside
Outpatient pulmonary follow-up recommended-PFTs, inhalers, ongoing smoking cessation counseling, and yearly low-dose lung cancer screening CT, sleep apnea workup
Patient being prepared for discharge home. No additional recommendations at this time. Pulmonary service will now sign off. Thank you for allowing us to be involved in the care of this patient. Please reconsult if there are any additional
questions/concerns, or if patient's respiratory status deteriorates.
Diagnostic data:
Chest x-ray 03/10/2024-minimal opacifications left base otherwise clear
Chest x-ray 07/07/2024-mild asymmetrical airspace disease left midlung field consistent with mild pneumonia, decreased bilateral lung volumes
CT chest 07/07/2024-bilateral diffuse decreased attenuation through pulmonary arteries in both lungs involving the lobar and segmental pulmonary arteries suggesting acute bilateral pulmonary emboli, symmetry of the findings in the absence of focal
low-attenuation thrombus raises the possibility this is a false positive finding, severe left lower lobe bronchitis, 3.1 cm centrilobular airspace disease superior segment left lower lobe and mild centrilobular groundglass opacification in the
lingula consistent with pneumonia, moderate enlarged left hilar lymph node, 1.6 cm pancreatic cyst, esophagitis
Lower extremity ultrasound 07/08/2024-no evidence for DVT bilaterally
Echocardiogram 07/08/2024-normal biventricular size and systolic function, EF 50-55%, normal diastolic function, no significant valvular disease
Total time spent today was 35 minutes for this encounter. Time includes reviewing laboratory test/imaging results, reviewing pertinent medical records, obtaining and reviewing medical history, performing an appropriate exam, ordering medications,
tests and procedures. Time also includes documentation of this encounter, coordinating patient care and communicating with other healthcare professionals. Total time does not include separately billed tests performed on this date of service.
Subjective Data
-
Date of Service:
Date of Service: July 11, 2024
Chief Complaint: Pulmonary Follow Up and Dyspnea Follow Up
Subjective:
Patient was seen and evaluated this morning (late note entry). Still having coughing fits at times. He is doing well, no overnight events reported. Eager to go home. Denies chest pain, shortness of breath, fevers or chills.
Review of Systems
General: Other (Negative unless mentioned above)
Objective Data
Data Reviewed
Vital Signs / I&O / Oxygen:
Vital Signs
Temp Pulse Resp BP Pulse Ox
97.8 F 77 16 140/83 98
07/11/24 07:00 07/11/24 07:38 07/11/24 07:38 07/11/24 07:00 07/11/24 07:38
Intake and Output
07/10/24 07/11/24 07/12/24
06:59 06:59 06:59
Intake Total 960 / 960 240 / 240
Balance 960 / 960 240 / 240
SaO2 98
Nasal Cannula flow liters per 2
minute
Physical Exam
General: Respiratory Distress (n), Comfortable, Chills (n) and Sweats (n)
HEENT: Normocephalic, Anicteric and Moist Mucous Membranes
Cardiovascular: S1-S2 and Peripheral Edema (n)
Respiratory: Wheeze (n), Crackles (Left base), Rhonchi (n), Non-Labored Respirations, Accessory Resp Muscle Use (n), Stridor (n) and Other (Diminished breath sounds bilaterally and prolonged expiratory time)
GI: Soft, Non Distended, Non Tender and Normal Bowel Sounds
Neurology: AO x 3 and Tremors (n)
Skin: Warm, Dry, Cyanosis (n) and Jaundice (n)
Labs/Micro/Reports
Lab Data
07/11/24 06:15
07/09/24 07:05
Microbiology
07/08/24 12:25 Sputum Respiratory Culture - Final
Usual Respiratory Simona
07/08/24 12:25 Sputum Gram Stain - Final
07/08/24 02:49 Nose MRSA Screen - Final
No Methicillin Resistant Staphylococcus aureus isolated.
--- NOTE | 2024-07-11 15:53 | W.DS.TRANS ---
DC Summary - [employer]
-
Discharge Instructions:
Discharge Diagnosis/Procedures Severe left lower lobe bronchitis/left lung
pneumonia
Diabetes type 2
GERD
Anxiety
Migraines
Enlarged prostate
1.6 cm cyst in the pancreatic body
Chronic back pain
Diet Diabetic, Carb Controlled
Activity As tolerated,No restrictions
Driving Restrictions As prior to admission
Bathing Restrictions None
Others Tests Esophagitis on CT thickening of the esophagus.
Needs endoscopy as outpatient. Follow-up with
your GI doctor
MRI of the pancreas as outpatient
Instructions:
Stand-Alone Forms:
Changes to Home Medications: Yes
Discharge Medications:
DC Medications w/original date entered in [facility]
albuterol sulfate 90 mcg/actuation aerosol inhaler 2 puff inhalation R Q6HPRN PRN sob 07/07/24
dulaglutide 1.5 mg/0.5 mL subcutaneous pen injector (Trulicity) 1.5 mg SC WE Diabetes 07/07/24
furosemide 20 mg tablet 20 mg PO DAILY Fluid Retention/Swelling 07/07/24
ipratropium 0.5 mg-albuterol 3 mg (2.5 mg base)/3 mL nebulization soln 3 ml inhalation R Q4HPRN PRN sob 07/07/24
lamotrigine 25 mg tablet 25 mg PO MOWEFR Mental Health/Anxiety 07/07/24
lorazepam 1 mg tablet 1 mg PO TID Mental Health/Anxiety 07/07/24
metformin 500 mg tablet,extended release 24 hr 500 mg PO BID Diabetes 07/07/24
omeprazole 40 mg capsule,delayed release 40 mg PO DAILY Gastrointestinal Issue 07/07/24
peg 400-propylene glycol (PF) 0.4 %-0.3 % eye drops in a dropperette (Systane (PF)) 1 drp BOTH EYES Q4HPRN PRN dry eyes 07/07/24
tamsulosin 0.4 mg capsule 0.4 mg PO DAILY Urinary Issue 07/07/24
tramadol 50 mg tablet 50 mg PO TID Pain 07/07/24
azithromycin 500 mg tablet (Zithromax) 500 mg PO DAILY Lung/breathing issues 3 days #3 tabs 07/11/24
benzonatate 100 mg capsule 200 mg (2 x 100 mg) PO TID PRN cough #30 caps 07/11/24
budesonide-formoterol HFA 160 mcg-4.5 mcg/actuation aerosol inhaler (Symbicort) 2 puff inhalation R BID Lung/breathing issues #10.2 grams 07/11/24
cefuroxime axetil 500 mg tablet 500 mg PO BID Infection #8 tabs 07/11/24
guaifenesin 600 mg tablet, extended release 12 hr 600 mg PO Q12 Lung/breathing issues #0 tabs 07/11/24
meloxicam 7.5 mg tablet 7.5 mg PO DAILY PRN Pain #0 tabs 07/11/24
prednisone 10 mg tablet See Rx Instructions .Route .COMPLEX Lung/breathing issues #30 tabs 07/11/24
promethazine 6.25 mg-codeine 10 mg/5 mL syrup 5 ml PO Q6H PRN cough spasm #118 mL 07/11/24
Home Medication Changes
new
azithromycin 500 mg tablet (Zithromax) 500 mg PO DAILY Lung/breathing issues 3 days #3 tabs 07/11/24
benzonatate 100 mg capsule 200 mg (2 x 100 mg) PO TID PRN cough #30 caps 07/11/24
budesonide-formoterol HFA 160 mcg-4.5 mcg/actuation aerosol inhaler (Symbicort) 2 puff inhalation R BID Lung/breathing issues #10.2 grams 07/11/24
cefuroxime axetil 500 mg tablet 500 mg PO BID Infection #8 tabs 07/11/24
guaifenesin 600 mg tablet, extended release 12 hr 600 mg PO Q12 Lung/breathing issues #0 tabs 07/11/24
meloxicam 7.5 mg tablet 7.5 mg PO DAILY PRN Pain #0 tabs 07/11/24
prednisone 10 mg tablet See Rx Instructions .Route .COMPLEX Lung/breathing issues #30 tabs 07/11/24
promethazine 6.25 mg-codeine 10 mg/5 mL syrup 5 ml PO Q6H PRN cough spasm #118 mL 07/11/24
Pending Results: No
--- NOTE | 2024-07-13 12:02 | PN.CDI ---
CDI
- -
CDI:
Physician Documentation Request
Admit Date: 07/07/24 20:17
Dear Doctor Mateo,
Patient admitted with severe left lower lobe bronchitis/left lung pneumonia
H&P and hospitalist progress noted from 07/08- state 'Sepsis criteria met/could be due to pulmonary embolism' however not in subsequent documentation.
PE was ruled out.
07/07 WBC 11.5 , temp 07/07 wnl, Heart rate 112-126 , respiratory rate 18-35
Please clarify the following:
____ - Sepsis was present
____ - Sepsis was ruled out
____ - Other
Use of terms such as suspected, likely, concern for, or probable (associated with a specific diagnosis that is being evaluated, monitored, or treated as if it exists) are acceptable and can be coded in the inpatient setting, when documented at the
time of discharge.
Thank you,
Rosa Larsen RN, BSN
CDI Specialist
tiger text
Please use your independent medical judgment in providing your response.
== END 2024-07-11 16:09 | disposition home or self-care (01) | DRG 190 ==
LOC: 4 WEST ACU 20:17
PROVIDERS: Emergency Medicine; ADMITTING PHYSICIAN Hospitalist; ATTENDING PHYSICIAN Hospitalist; EMERGENCY PHYSICIAN Emergency Medicine; OTHER PHYSICIAN Internal Medicine Critical Care Medicine
DX: J44.0 Chronic obstructive pulmonary disease with (acute) lower respiratory infection (principal); J18.9 Pneumonia, unspecified organism; K86.2 Cyst of pancreas; J44.1 Chronic obstructive pulmonary disease with (acute) exacerbation; E11.9 Type 2 diabetes mellitus without complications; F41.9 Anxiety disorder, unspecified; G43.909 Migraine, unspecified, not intractable, without status migrainosus; G89.29 Other chronic pain; M54.9 Dorsalgia, unspecified; N40.0 Benign prostatic hyperplasia without lower urinary tract symptoms; K21.9 Gastro-esophageal reflux disease without esophagitis; M19.91 Primary osteoarthritis, unspecified site; Z87.891 Personal history of nicotine dependence; Z79.899 Other long term (current) drug therapy; Z79.85 Long-term (current) use of injectable non-insulin antidiabetic drugs; Z79.84 Long term (current) use of oral hypoglycemic drugs; Z11.52 Encounter for screening for COVID-19
CPT/HCPCS: 70450; 71046; 71275; 78582; 80048; 80053; 82962; 83036; 83605; 84145; 84484; 85025; 85027; 85730; 87070; 87205; 87502; 87811; 93005; 93306; 93970; 94640; 96365; 96366; 96375; 97161; 99291; A9540; A9567; Q9967

== ENCOUNTER 2024-07-26 17:51 | Emergency (ER) | payer MEDICARE, OTHER, SELFPAY ==
[2024-07-26 17:53] VITALS: BP 141/89
[2024-07-26 18:37] LABS: % Basophils 0.3 % (0-2); % Eosinophils 0.8 % (0-6); % Immature Granulocytes 0.8 % (0-0.5); % Lymphocytes 17.4 % (20.5-51.1); % Monocytes 7.5 % (1.7-9.3); % Neutrophils 73.2 % (42.2-75.2); Absolute Eosinophils 0.1 10^3/uL (0-0.7); Absolute Immature Granulocytes 0.1 10^3/uL (0-0.05); Absolute Lymphocytes 1.9 10^3/uL (1.2-3.4); Absolute Monocytes 0.8 10^3/uL (0.1-0.6); Absolute Neutrophils 7.8 10^3/uL (1.4-6.5); Hemoglobin 14.8 g/dL (13.0-18.0); Mean Corp Hgb Conc. 34.4 g/dL (33.0-37.0); Mean Corpuscular Hgb 31.6 pg (27.0-31.0); Mean Corpuscular Volume 91.9 fL (80.0-94.0); Mean Platelet Volume 9.1 fL (7.4-10.4); Nucleated Red Blood Cells % 0 % (-); Platelet Count 282 10^3/uL (130-400); Red Blood Cell Count 4.68 10^6/uL (4.70-6.10); Red Cell Dist. Width 13.4 % (11.5-14.5); White Blood Cell Count 10.6 10^3/uL (4.8-10.8)
[2024-07-26 18:51] LABS: ALT (SGPT) 29 U/L (0-50); AST (SGOT) 24 U/L (17-59); Albumin 4.4 g/dl (3.5-5.0); Alkaline Phosphatase 130 U/L (38-126); Blood Urea Nitrogen 31 mg/dl (9-20); Calcium 9.7 mg/dl (8.4-10.2); Carbon Dioxide 20 mmol/L (22-30); Chloride 104 mmol/L (98-107); Glucose 144 mg/dl (70-99); Potassium 4.5 mmol/L (3.5-5.1); Sodium 136 mmol/L (135-145); Total Bilirubin 0.7 mg/dl (0.2-1.3); Total Protein 7.2 g/dl (6.3-8.2); eGFR > 60.00
[2024-07-26 18:56] LABS: COVID-19 Antigen Negative (Negative)
[2024-07-26 18:59] LABS: NT-proBNP 22.5 pg/ml
[2024-07-26 19:35] VITALS: BP 145/90
--- NOTE | 2024-07-26 20:04 | ED.GENMED ---
History of Present Illness
General
Chief Complaint: Breathing Problem
Source: patient
Time Seen by Provider: 07/26/24 19:49
History of Present Illness
History of Present Illness:
60 male presents to the emergency room complaining of feeling anxious, has sensation he cannot take a deep breath. Patient recently hospitalized [place] for similar complaints. Had a chest CT that showed evidence of pneumonia and he was given a
course of antibiotics. Patient also evaluated by pulmonary and diagnosed with COPD. Discharged on inhalers. Patient also complaining of sensation that he has been movement inside his body causing his curl up and move his extremities. Patient
looks like he was prescribed promethazine but is not taking it. No fever
Past History
Past History
ED Past Medical History: GERD, NIDDM and Other (Peritonitis, Pulmonary nodules (followed up at [place]), Osteoarthritis, Degenerative disc disease, Migraines. Vertigo. )
ED Past Surgical History: Other (Cataracts, Right hernia repair)
Social History
Tobacco: Former smoker
Alcohol: Occasional
Drug: None
Personal: Single
Living: with roommate
Phy Exam
Physical Exam
Physical Exam:
General: Awake, Alert, Oriented X3. No acute distress.
Vitals: Tachycardia
Head: Atraumatic normocephalic
Eyes: Pupils equal, EOMI
Throat: Airway intact, no exudates
Neck: Trachea midline
Lungs: Clear and equal b/l
Heart: Regular rate, no murmurs
Abd: Soft, Nontender, No pulsatile mass
Neuro: Nonfocal
Skin: Warm, dry, no rash
Extremities: pulses equal b/l, no edema
Scores
Heart Failure Risk
Heart Failure Risk Score: Not Applicable
Course
Orders/Labs/Results
Orders:
Orders
07/26/24 17:56
Electrocardiogram (*1) Urgent
Reason for Study: Shortness of Breath
EKG- Treatment ONCE
07/26/24 17:58
CXR2 [CR Chest - 2 Views ] Urgent
Comment:
Reason For Exam: sob
07/26/24 18:06
BNP [NT-proBNP] Urgent
COVID-19 Antigen Urgent
Source: Nasal Swab
Complete Blood Count/With Diff Urgent
Comprehensive Metabolic Panel Urgent
Influenza A+B Rapid Molecular Urgent
AVIVA Source: Nasal Swab
Specimen Description:
07/26/24 20:01
0.9% Sodium Chloride 1000 ml [Nss] 1,000 ml IV BOLUS
Lorazepam [Ativan] 1 mg PO NOW STA
Tramadol HCl [Ultram] 50 mg PO NOW STA
07/26/24 20:19
D-Dimer Urgent
Abnormal Lab Results
07/26/24
18:06
RBC 4.68 L 10^6/uL
(4.70-6.10)
MCH 31.6 H pg
(27.0-31.0)
Abs Immat Gran (auto) 0.1 H 10^3/uL
(0-0.05)
Absolute Neuts (auto) 7.8 H 10^3/uL
(1.4-6.5)
Absolute Monos (auto) 0.8 H 10^3/uL
(0.1-0.6)
Immature Gran % 0.8 H %
(0-0.5)
Lymphocytes % 17.4 L %
(20.5-51.1)
Carbon Dioxide 20 L mmol/L
(22-30)
BUN 31 H mg/dl
(9-20)
Glucose 144 H mg/dl
(70-99)
Alkaline Phosphatase 130 H U/L
(38-126)
07/26/24 18:06
07/26/24 18:06
Vital Signs
Initial and Last Documented VS:
Initial Vital Signs
Temp Pulse Resp BP Pulse Ox
98.8 F 125 35 141/89 96
07/26/24 17:53 07/26/24 17:53 07/26/24 17:53 07/26/24 17:53 07/26/24 17:53
Last Documented Vital Signs
Temp Pulse Resp BP Pulse Ox
98.8 F 97 19 114/87 96
07/26/24 19:35 07/26/24 22:30 07/26/24 22:30 07/26/24 21:00 07/26/24 22:30
MDM/Problems Addressed
Differential Diagnosis Includes:
COPD exacerbation, pneumothorax, pneumonia, anxiety
MDM/Problems Addressed:
Patient presents feeling like he cannot get a good breath. He does not have significant wheezing on exam. His heart rate was elevated on arrival but did improve with IV fluids as well as his typical dose of lorazepam. Chest x-ray shows no acute
abnormalities and in fact the left lower lobe infiltrate seems to be resolving. Patient's labs are unremarkable. No evidence of acute decompensation or new infection. I believe anxiety is playing a major role in the patient's sense of dyspnea.
Stable for discharge home.
*EKG
Heart Rate: 119
Rate: tachycardiac
Rhythm: sinus tachycardia
[place]: normal axis
Interval: normal interval
QRS Pattern: normal QRS
Ischemia: no ischemia
*Cylinder Sander Operator Interpretation
Rate: tachycardiac
Interpretation: abnormal
Heart Rate: 119
Rhythm: sinus tachycardia
*Critical Care Note
Total Time (30-74mins, 75-104mins- exclusive of procedures): Not Applicable
ED Attending Note
-
Portions of this chart may have been created with voice recognition software.� Occasional wrong word or��sound alike� substitutions may have occurred due to the inherent limitations of voice recognition software.
Discharge Plan
Departure
Patient Disposition: Home (Routine Discharge)
Date of Disposition: 07/26/24
Time of Disposition: 22:17
Patient with high blood pressure during this ER visit?: No
Condition: Good
Discharge Problem:
COPD (chronic obstructive pulmonary disease), Acute dehydration
Instructions: Chronic obstructive pulmonary disease (COPD) - Discharge instructions, Dehydration in adults - ED discharge instructions
Prescriptions:
No Action
ipratropium-albuterol 0.5 mg-3 mg(2.5 mg base)/3 mL Solution For Nebulization
3 ml INHALATION R Q4HPRN PRN (Reason: sob)
omeprazole 40 mg Capsule,Delayed Release(Dr/Ec)
40 mg PO DAILY
lamotrigine 25 mg Tablet
25 mg PO MOWEFR
Patient Comments:
07/07/24: to take 1x mowefr for 1 week, then 1x QD for 1 week, then 1xBID
tamsulosin 0.4 mg Capsule
0.4 mg PO DAILY
furosemide 20 mg Tablet
20 mg PO DAILY
lorazepam 1 mg Tablet
1 mg PO TID
albuterol sulfate 90 mcg/actuation Hfa Aerosol Inhaler
2 puff INHALATION R Q6HPRN PRN (Reason: sob)
metformin 500 mg Tablet Extended Release 24 Hr
500 mg PO BID
Systane (PF) 0.4-0.3 % Dropperette
1 drp BOTH EYES Q4HPRN PRN (Reason: dry eyes)
Trulicity 1.5 mg/0.5 mL Pen Injector
1.5 mg SC WE
tramadol 50 mg tablet
50 mg PO TID
cefuroxime axetil 500 mg Tablet
500 mg PO BID Qty: 8 0RF
guaifenesin 600 mg Tablet Extended Release 12hr
600 mg PO Q12 Qty: 0 0RF
budesonide-formoterol [Symbicort] 160-4.5 mcg/actuation Hfa Aerosol Inhaler
2 puff inhalation R BID Qty: 10.2 0RF
benzonatate 100 mg Capsule
200 mg PO TID PRN (Reason: cough) Qty: 30 0RF
meloxicam 7.5 mg Tablet
7.5 mg PO DAILY PRN (Reason: Pain) Qty: 0 0RF
azithromycin [Zithromax] 500 mg tablet
500 mg PO DAILY 3 Days Qty: 3 0RF
promethazine-codeine 6.25-10 mg/5 mL syrup
5 ml PO Q6H PRN (Reason: cough spasm) Qty: 118 0RF
prednisone 10 mg Tablet
See Rx Instructions .ROUTE .COMPLEX Qty: 30 0RF
Rx Instructions:
Take By Mouth:
40 mg daily x3 days, 30 mg daily x3 days,
20 mg daily x3 days, 10 mg daily x3 days.
Referrals:
UNKNOWN - PT DOES,NOT KNOW [Family Provider] -
Interventions
Interventions:
*Risk Screen - Suicide Last Done: 07/26/24 17:53
*General Assessment Last Done: 07/26/24 17:53
*Neglect/Abuse Screening Last Done: 07/26/24 17:53
*ED- Fall Risk Assessment Last Done: 07/26/24 20:22
*ED COVID-19 Vaccine History Last Done: 07/26/24 17:53
*Nursing Disposition Last Done: 07/26/24 22:58
ED- Cardiac Assessment Last Done: 07/26/24 20:29
ED- Pulmonary Assessment Last Done: 07/26/24 20:29
Discharge Date and Time
Discharge Date/Time: 07/26/24 22:59
Print Language: BENINESE
[2024-07-26] MEDS: NSS 1000 IV (20:17)
[2024-07-26] MEDS: ATIVAN 1 MG PO (20:18)
[2024-07-26] MEDS: ULTRAM 50 MG PO (20:18)
[2024-07-26 20:42] LABS: D-Dimer 0.34 ug/mlFEU (0.00-0.50)
[2024-07-26 20:54] VITALS: BP 139/78
[2024-07-26 21:00] VITALS: BP 114/87
== END 2024-07-26 22:59 | disposition home or self-care (01) ==
LOC: EMR 17:51
PROVIDERS: Student in an Organized Health Care Education/Training Program; EMERGENCY PHYSICIAN Emergency Medicine
DX: J44.0 Chronic obstructive pulmonary disease with (acute) lower respiratory infection (principal); J18.9 Pneumonia, unspecified organism; E86.0 Dehydration; R00.0 Tachycardia, unspecified; R06.02 Shortness of breath; Z11.52 Encounter for screening for COVID-19; K21.9 Gastro-esophageal reflux disease without esophagitis; R91.8 Other nonspecific abnormal finding of lung field; F41.9 Anxiety disorder, unspecified; M51.35 Other intervertebral disc degeneration, thoracolumbar region; G43.909 Migraine, unspecified, not intractable, without status migrainosus; E11.36 Type 2 diabetes mellitus with diabetic cataract; M19.90 Unspecified osteoarthritis, unspecified site; Z87.891 Personal history of nicotine dependence
CPT/HCPCS: 99284; 96360; 71046; 80053; 83880; 85025; 85379; 87502; 87811; 93005

== ENCOUNTER 2024-08-17 18:26 | Emergency (ER) | payer MEDICARE, OTHER, SELFPAY ==
[2024-08-17 18:34] VITALS: BP 159/98
[2024-08-17 19:07] LABS: % Basophils 0.5 % (0-2); % Eosinophils 0.9 % (0-6); % Immature Granulocytes 0.4 % (0-0.5); % Lymphocytes 20.6 % (20.5-51.1); % Monocytes 7.9 % (1.7-9.3); % Neutrophils 69.7 % (42.2-75.2); Absolute Eosinophils 0.1 10^3/uL (0-0.7); Absolute Lymphocytes 1.5 10^3/uL (1.2-3.4); Absolute Monocytes 0.6 10^3/uL (0.1-0.6); Absolute Neutrophils 5.2 10^3/uL (1.4-6.5); Hematocrit 40.3 % (39.0-52.0); Hemoglobin 14.6 g/dL (13.0-18.0); Mean Corp Hgb Conc. 36.2 g/dL (33.0-37.0); Mean Platelet Volume 9.3 fL (7.4-10.4); Nucleated Red Blood Cells % 0 % (-); Platelet Count 292 10^3/uL (130-400); Red Blood Cell Count 4.43 10^6/uL (4.70-6.10); Red Cell Dist. Width 12.8 % (11.5-14.5); White Blood Cell Count 7.5 10^3/uL (4.8-10.8)
[2024-08-17 19:20] LABS: ALT (SGPT) 24 U/L (0-50); AST (SGOT) 22 U/L (17-59); Albumin 4.8 g/dl (3.5-5.0); Alkaline Phosphatase 101 U/L (38-126); Blood Urea Nitrogen 22 mg/dl (9-20); Calcium 9.8 mg/dl (8.4-10.2); Carbon Dioxide 24 mmol/L (22-30); Chloride 103 mmol/L (98-107); Glucose 146 mg/dl (70-99); Sodium 140 mmol/L (135-145); Total Bilirubin 0.9 mg/dl (0.2-1.3); Total Protein 7.5 g/dl (6.3-8.2); eGFR > 60.00
[2024-08-17 19:23] LABS: COVID-19 Antigen Negative (Negative)
[2024-08-17 19:31] LABS: Troponin I < 0.012 ng/ml
[2024-08-17 21:40] VITALS: BMI 33.2
--- NOTE | 2024-08-17 22:08 | ED.GENMED ---
History of Present Illness
General
Chief Complaint: Breathing Problem
Source: patient and records (Review of records states he had a normal CT scan of his chest at [place] recently)
Exam Limitations: none
Time Seen by Provider: 08/17/24 21:48
Nursing documentation reviewed up to this point in time: agreed with
History of Present Illness
History of Present Illness:
68 yo male presents to the emergency department complaining of cough, shortness of breath, body aches. He has been using nebulizers for his shortness of breath. Complains of some stomach discomfort. He states he has an esophageal mass that he has
been waiting to get an endoscopy.
Past History
Past History
ED Past Medical History: GERD, NIDDM and Other (Peritonitis, Pulmonary nodules (followed up at [place]), Osteoarthritis, Degenerative disc disease, Migraines. Vertigo. )
ED Past Surgical History: Other (Cataracts, Right hernia repair)
Social History
Tobacco: Former smoker
Alcohol: Occasional
Drug: None
Personal: Single
Living: with roommate
Review of Systems
Review of Systems
Allergies reviewed?: Yes
All Other Systems: Not applicable
Constitutional: Reports no symptoms
EENT: Reports no symptoms
Respiratory: Reports cough and trouble breathing
Cardiac: Reports no symptoms
ABD/GI: Reports no symptoms
: Reports no symptoms
Musculoskeletal: Reports no symptoms
Skin: Reports no symptoms
Neurological: Reports no symptoms
Endocrine: Reports no symptoms
Hematologic/Lymphatic: Reports no symptoms
Psychiatric: Reports no symptoms
Phy Exam
Physical Exam
Physical Exam:
Physical Exam
General: no apparent distress, not acutely ill
Neck: supple. no meningeal signs. normal posterior pharynx
Heart: s1/s2 regular rate and rhythm, no murmur. equal radial
pulses.
HEENT: Pupils equal round reactive to light, EOMI
Lungs: no acute respiratory distress. clear bilaterally
Abdomen: normal bowel sounds. not tender. no CVAT
Neuro: alert and oriented. no focal neurological deficits cranial nerves II through XII intact
Skin: no rash
Psychiatric: well kept. interactive and cooperative
Extremities: no edema. no calf tenderness. negative homans. good distal pulses
Scores
Heart Failure Risk
Heart Failure Risk Score: Not Applicable
Sepsis
Sepsis Screening
Sepsis Assessment: Sepsis Ruled Out
Sepsis Screen
Sepsis Screen: Sepsis Ruled Out
Date: 08/17/24
Time: 22:24
Course
Orders/Labs/Results
Orders:
Orders
08/17/24 18:38
Electrocardiogram (*1) Urgent
Reason for Study: Shortness of Breath
EKG- Treatment ONCE
Chest [CR Chest - 2 Views ] Urgent
Comment:
Reason For Exam: SOB
08/17/24 18:54
Complete Blood Count/With Diff Urgent
Comprehensive Metabolic Panel Urgent
Troponin I Urgent
08/17/24 18:55
COVID-19 Antigen Urgent
Source: Nasal Swab
Influenza A+B Rapid Molecular Urgent
AVIVA Source: Nasal Swab
Specimen Description:
08/17/24 22:05
Green Grabber - Maalox//Viscous Lidocaine 2% NOW (ED Only) Mag Hydrox/Al Hydrox/Simeth [Maalox] 30 ml Phenobarb/Hyoscy/Atropine/Scop [] 10 ml Viscous Lidocaine 2% [Xylocaine Viscous Cup] 10 ml PO NOW
Lorazepam [Ativan] 1 mg PO NOW STA
Prednisone [Deltasone] 50 mg PO NOW STA
Abnormal Lab Results
08/17/24
18:54
RBC 4.43 L 10^6/uL
(4.70-6.10)
MCH 33.0 H pg
(27.0-31.0)
BUN 22 H mg/dl
(9-20)
Glucose 146 H mg/dl
(70-99)
08/17/24 18:54
08/17/24 18:54
Vital Signs
Initial and Last Documented VS:
Initial Vital Signs
Pulse Ox
97
08/17/24 18:28
Last Documented Vital Signs
Temp Pulse Resp BP Pulse Ox
98.3 F 86 16 159/98 96
08/17/24 18:34 08/17/24 21:43 08/17/24 21:43 08/17/24 18:34 08/17/24 21:43
MDM/Problems Addressed
Differential Diagnosis Includes:
pneumonia, copd exacerbation
MDM/Problems Addressed:
68-year-old male with mild COPD exacerbation, treat with short course of prednisone. Continue Protonix. Follow-up with gastroenterology.
Chronic conditions affecting care: COPD and Other (GERD)
Acute Exacerbation and/or Progression of Chronic Illness: COPD and Other
*Pulse Oximetry
Patient hypoxic: no
*EKG
Interpreted by ED Provider?: Yes
EKG Intrepretation Date: 08/17/24
EKG Intrepretation Time: 18:50
Interpretation: abnormal
Comparison EKG: changes noted
Heart Rate: 89
Rate: normal
Rhythm: sinus and PAC's
[place]: normal axis
Interval: normal interval
QRS Pattern: normal QRS
Ischemia: no ischemia
*Pencil Maker Interpretation
Rate: normal
Interpretation: normal
Heart Rate: 88
Rhythm: sinus
*Critical Care Note
Total Time (30-74mins, 75-104mins- exclusive of procedures): Not Applicable
Data Reviewed
Review of Other/Old Records Reveals: Progress Notes (copd exacerbation on recent visit)
Source: records
Further Testing Considered But Not Given:
ct chest not indicated
Patient Management
Social determinants of health affecting care: Living situation and Strong social support
Escalation/DeEscalation of care consider admission/obs:
admit not indicated
ED Attending Note
-
Portions of this chart may have been created with voice recognition software.� Occasional wrong word or��sound alike� substitutions may have occurred due to the inherent limitations of voice recognition software.
Discharge Plan
Departure
Patient Disposition: Home (Routine Discharge)
Date of Disposition: 08/17/24
Time of Disposition: 22:21
Patient with high blood pressure during this ER visit?: Yes
Condition: Good
Discharge Problem:
COPD exacerbation, GERD (gastroesophageal reflux disease)
Instructions: Exacerbation of COPD (DC), Acid reflux and GERD in adults, BLOOD PRESSURE
Prescriptions:
No Action
ipratropium-albuterol 0.5 mg-3 mg(2.5 mg base)/3 mL Solution For Nebulization
3 ml INHALATION R Q4HPRN PRN (Reason: sob)
omeprazole 40 mg Capsule,Delayed Release(Dr/Ec)
40 mg PO DAILY
lamotrigine 25 mg Tablet
25 mg PO MOWEFR
Patient Comments:
07/07/24: to take 1x mowefr for 1 week, then 1x QD for 1 week, then 1xBID
tamsulosin 0.4 mg Capsule
0.4 mg PO DAILY
furosemide 20 mg Tablet
20 mg PO DAILY
lorazepam 1 mg Tablet
1 mg PO TID
albuterol sulfate 90 mcg/actuation Hfa Aerosol Inhaler
2 puff INHALATION R Q6HPRN PRN (Reason: sob)
metformin 500 mg Tablet Extended Release 24 Hr
500 mg PO BID
Systane (PF) 0.4-0.3 % Dropperette
1 drp BOTH EYES Q4HPRN PRN (Reason: dry eyes)
Trulicity 1.5 mg/0.5 mL Pen Injector
1.5 mg SC WE
tramadol 50 mg tablet
50 mg PO TID
cefuroxime axetil 500 mg Tablet
500 mg PO BID Qty: 8 0RF
guaifenesin 600 mg Tablet Extended Release 12hr
600 mg PO Q12 Qty: 0 0RF
budesonide-formoterol [Symbicort] 160-4.5 mcg/actuation Hfa Aerosol Inhaler
2 puff inhalation R BID Qty: 10.2 0RF
benzonatate 100 mg Capsule
200 mg PO TID PRN (Reason: cough) Qty: 30 0RF
meloxicam 7.5 mg Tablet
7.5 mg PO DAILY PRN (Reason: Pain) Qty: 0 0RF
azithromycin [Zithromax] 500 mg tablet
500 mg PO DAILY 3 Days Qty: 3 0RF
promethazine-codeine 6.25-10 mg/5 mL syrup
5 ml PO Q6H PRN (Reason: cough spasm) Qty: 118 0RF
prednisone 10 mg Tablet
See Rx Instructions .ROUTE .COMPLEX Qty: 30 0RF
Rx Instructions:
Take By Mouth:
40 mg daily x3 days, 30 mg daily x3 days,
20 mg daily x3 days, 10 mg daily x3 days.
Referrals:
PRIVATE,PHYSICIAN [Family Provider] -
Noemi Perdue MD [Active] - Call in 1-3 days for appt
Interventions
Interventions:
*Risk Screen - Suicide Last Done: 08/17/24 18:34
*General Assessment Last Done: 08/17/24 18:34
*Neglect/Abuse Screening Last Done: 08/17/24 18:34
*ED- Fall Risk Assessment Last Done: 08/17/24 21:00
*ED COVID-19 Vaccine History Last Done: 08/17/24 18:34
ED- Cardiac Assessment Last Done: 08/17/24 21:00
ED- Pulmonary Assessment Last Done: 08/17/24 21:00
Discharge Date and Time
Print Language: MALAGASY
[2024-08-17] MEDS: MAALOX 50 PO (22:20)
[2024-08-17] MEDS: ATIVAN 1 MG PO (22:21)
[2024-08-17] MEDS: DELTASONE 50 MG PO (22:21)
== END 2024-08-17 22:40 | disposition home or self-care (01) ==
LOC: EMR 18:26
PROVIDERS: Emergency Medicine; EMERGENCY PHYSICIAN Emergency Medicine
DX: J44.1 Chronic obstructive pulmonary disease with (acute) exacerbation (principal); K21.9 Gastro-esophageal reflux disease without esophagitis; Z11.52 Encounter for screening for COVID-19; R03.0 Elevated blood-pressure reading, without diagnosis of hypertension; R91.8 Other nonspecific abnormal finding of lung field; K22.9 Disease of esophagus, unspecified; E11.36 Type 2 diabetes mellitus with diabetic cataract; M19.90 Unspecified osteoarthritis, unspecified site; F41.9 Anxiety disorder, unspecified; G43.909 Migraine, unspecified, not intractable, without status migrainosus; N40.0 Benign prostatic hyperplasia without lower urinary tract symptoms; Z87.01 Personal history of pneumonia (recurrent); Z87.891 Personal history of nicotine dependence; Z79.84 Long term (current) use of oral hypoglycemic drugs
CPT/HCPCS: 99283; 71046; 80053; 84484; 85025; 87502; 87811; 93005

== ENCOUNTER 2024-09-08 06:24 | Day surgery (SDC) | payer MEDICARE, SELFPAY | END 2024-09-08 09:48 | disposition home or self-care (01) | LOC: GI 06:24 | PROVIDERS: ATTENDING PHYSICIAN Internal Medicine Gastroenterology; FAMILY PHYSICIAN Family Medicine | DX: R13.14 Dysphagia, pharyngoesophageal phase (principal); R93.3 Abnormal findings on diagnostic imaging of other parts of digestive tract; K22.2 Esophageal obstruction; K44.9 Diaphragmatic hernia without obstruction or gangrene; R12 Heartburn | CPT/HCPCS: 43249 ==

== ENCOUNTER → 2024-12-29 14:10 | Outpatient (REF) | payer MEDICARE, SELFPAY ==
[2024-12-29 15:13] LABS: D-Dimer 0.28 ug/mlFEU (0.00-0.50)
== END ==
LOC: REG 14:10
PROVIDERS: ATTENDING PHYSICIAN Nurse Practitioner Family
DX: R06.02 Shortness of breath (principal)
CPT/HCPCS: 36415; 85379

== ENCOUNTER → 2025-01-03 13:49 | Outpatient (REF) | payer MEDICARE, OTHER, SELFPAY | LOC: HWRAD 13:49 | PROVIDERS: ATTENDING PHYSICIAN Nurse Practitioner Family | DX: R91.1 Solitary pulmonary nodule (principal) | CPT/HCPCS: 71250 ==

== ENCOUNTER → 2025-02-17 12:00 | Outpatient (REF) | payer MEDICARE, OTHER, SELFPAY | LOC: DHSLP 12:00 | PROVIDERS: ATTENDING PHYSICIAN Internal Medicine Critical Care Medicine | DX: G47.33 Obstructive sleep apnea (adult) (pediatric) (principal) | CPT/HCPCS: 95800 ==

== ENCOUNTER 2025-04-04 07:50 | Emergency (ER) | payer MEDICARE, OTHER, SELFPAY ==
[2025-04-04 07:58] VITALS: BP 146/94
[2025-04-04 08:32] LABS: COVID-19 Antigen Negative (Negative)
--- NOTE | 2025-04-04 08:56 | ED.GENMED ---
History of Present Illness
General
Chief Complaint: Cold/Flu/URI Symptoms
Source: patient
Exam Limitations: none
Time Seen by Provider: 04/04/25 08:33
Nursing documentation reviewed up to this point in time: agreed with
History of Present Illness
History of Present Illness:
69-year-old male past medical history of COPD, diabetes presenting to the emergency department today with concerns of upper respiratory symptoms over the past 3 days noticed a low-grade fever this morning. Also had some chest achiness only with
coughing. Denies significant shortness of breath.
Past History
Past History
ED Past Medical History: GERD, NIDDM and Other (Peritonitis, Pulmonary nodules (followed up at [place]), Osteoarthritis, Degenerative disc disease, Migraines. Vertigo. )
ED Past Surgical History: Other (Cataracts, Right hernia repair)
Social History
Tobacco: Former smoker
Alcohol: Occasional
Drug: None
Personal: Single
Living: with roommate
Review of Systems
Review of Systems
Allergies reviewed?: Yes
All Other Systems: ROS reviewed and negative except as documented in HPI and ROS
Phy Exam
Physical Exam
Physical Exam:
GENERAL: Alert , in no apparent distress
EYE: pupils equal and reactive
NECK: Supple, no significant adenopathy.
ENT: o/p clr, mmm.
CARDIAC: Regular rate and rhythm .
LUNGS: Expiratory wheeze diffusely with forced exhalation right lower lung field with small amount of rhonchi with exhalation
ABDOMEN: Soft, without focal tenderness, no r/g, no cvat
NEUROLOGICAL: Alert and oriented, no focal neuro deficits
SKIN: Warm and dry, skin intact.
MUSCULOSKELETAL: No edema, well perfused.
PSYCH: Normal and appropriate interaction.
Course
Orders/Labs/Results
Orders:
Orders
04/04/25 08:03
CXR2 [CR Chest - 2 Views ] Urgent
Comment:
Reason For Exam: cough
04/04/25 08:06
COVID-19 Antigen Urgent
Source: Nasal Swab
Influenza A+B Rapid Molecular Urgent
AVIVA Source: Nasal Swab
Specimen Description:
04/04/25 08:46
Amoxicillin 875 mg/Clav 125 mg [Augmentin 875 mg/125 mg] 1 tablet PO NOW STA
Azithromycin [Zithromax] 500 mg PO NOW STA
Dexamethasone Pf [Decadron] 10 mg PO NOW STA
Ipratropium/Albuterol Sulfate [Duoneb] 3 ml INH R NOW ONE
04/04/25 08:58
Bedside Glucose- Treatment ONCE
04/04/25 09:27
Ketorolac [Toradol] 15 mg .ROUTE .STK-MED ONE
04/04/25 09:28
Ketorolac [Toradol] 15 mg IM NOW STA
Vital Signs
Initial and Last Documented VS:
Initial Vital Signs
Temp Pulse Resp BP Pulse Ox
98.6 F 97 20 146/94 96
04/04/25 07:58 04/04/25 07:58 04/04/25 07:58 04/04/25 07:58 04/04/25 07:58
Last Documented Vital Signs
Temp Pulse Resp BP Pulse Ox
98.6 F 97 20 146/94 96
04/04/25 07:58 04/04/25 07:58 04/04/25 07:58 04/04/25 07:58 04/04/25 09:20
MDM/Problems Addressed
MDM/Problems Addressed:
69-year-old male presenting to the emergency department with upper respiratory symptoms over the past 3 days. He claims that he thinks it is slightly worsened today. On arrival vital signs are normal patient no distress but does have expiratory
wheeze as well as additional adventitious sounds to the right lower lung field. Concern for early pneumonia. Patient started on antibiotic and given steroid. Patient doing well while in ER stable for outpatient treatment. Return precautions
given.
*Pulse Oximetry
SaO2: 96
Oxygen Mode of Delivery: Room air
Patient hypoxic: no (96)
*Critical Care Note
Total Time (30-74mins, 75-104mins- exclusive of procedures): Not Applicable
ED Attending Note
-
Portions of this chart may have been created with voice recognition software.� Occasional wrong word or��sound alike� substitutions may have occurred due to the inherent limitations of voice recognition software.
Discharge Plan
Departure
Patient Disposition: Home (Routine Discharge)
Date of Disposition: 04/04/25
Time of Disposition: 10:10
Patient with high blood pressure during this ER visit?: No
Condition: Good
Covid-19: Not Applicable
Discharge Problem:
COPD exacerbation, Pneumonia
Instructions: Chronic obstructive pulmonary disease (COPD) (DC)
Prescriptions:
New
prednisone 20 mg tablet
40 mg PO DAILY 4 Days Qty: 8 0RF
azithromycin 500 mg tablet
500 mg PO DAILY 2 Days Qty: 2 0RF
amoxicillin-pot clavulanate 875-125 mg tablet
1 tab PO BID 7 Days Qty: 14 0RF
No Action
ipratropium-albuterol 0.5 mg-3 mg(2.5 mg base)/3 mL Solution For Nebulization
3 ml INHALATION R Q4HPRN PRN (Reason: sob)
omeprazole 40 mg Capsule,Delayed Release(Dr/Ec)
40 mg PO DAILY
lamotrigine 25 mg Tablet
25 mg PO MOWEFR
Patient Comments:
07/07/24: to take 1x mowefr for 1 week, then 1x QD for 1 week, then 1xBID
tamsulosin 0.4 mg Capsule
0.4 mg PO DAILY
furosemide 20 mg Tablet
20 mg PO DAILY
lorazepam 1 mg Tablet
1 mg PO TID
albuterol sulfate 90 mcg/actuation Hfa Aerosol Inhaler
2 puff INHALATION R Q6HPRN PRN (Reason: sob)
metformin 500 mg Tablet Extended Release 24 Hr
500 mg PO BID
Systane (PF) 0.4-0.3 % Dropperette
1 drp BOTH EYES Q4HPRN PRN (Reason: dry eyes)
Trulicity 1.5 mg/0.5 mL Pen Injector
1.5 mg SC WE
tramadol 50 mg tablet
50 mg PO TID
cefuroxime axetil 500 mg Tablet
500 mg PO BID Qty: 8 0RF
guaifenesin 600 mg Tablet Extended Release 12hr
600 mg PO Q12 Qty: 0 0RF
budesonide-formoterol [Symbicort] 160-4.5 mcg/actuation Hfa Aerosol Inhaler
2 puff inhalation R BID Qty: 10.2 0RF
benzonatate 100 mg Capsule
200 mg PO TID PRN (Reason: cough) Qty: 30 0RF
meloxicam 7.5 mg Tablet
7.5 mg PO DAILY PRN (Reason: Pain) Qty: 0 0RF
azithromycin [Zithromax] 500 mg tablet
500 mg PO DAILY 3 Days Qty: 3 0RF
promethazine-codeine 6.25-10 mg/5 mL syrup
5 ml PO Q6H PRN (Reason: cough spasm) Qty: 118 0RF
prednisone 10 mg Tablet
See Rx Instructions .ROUTE .COMPLEX Qty: 30 0RF
Rx Instructions:
Take By Mouth:
40 mg daily x3 days, 30 mg daily x3 days,
20 mg daily x3 days, 10 mg daily x3 days.
Referrals:
UNKNOWN - PT DOES,NOT KNOW [Family Provider]
Activity Restrictions/Additional Instructions:
You came to the emergency department today with concerns of respiratory symptoms. Here you were given multiple medications to help improve your wheezing as well as potential early bacterial infection. Please continue medications as prescribed.
Please follow closely with your primary care doctor. Return for any worsening, new or concerning symptoms.
Interventions
Interventions:
*Risk Screen - Suicide Last Done: 04/04/25 07:58
*General Assessment Last Done: 04/04/25 09:24
*ED COVID-19 Vaccine History Last Done: 04/04/25 09:24
*ED Influenza Vaccine History Last Done: 04/04/25 09:24
[facility] Fall Risk Assessment Tool Last Done: 04/04/25 09:20
ED- Pulmonary Assessment Last Done: 04/04/25 09:20
Discharge Date and Time
Print Language: BHUTANESE
[2025-04-04] MEDS: AUGMENTIN 875 MG/125 MG 1 TABLET PO (09:08)
[2025-04-04] MEDS: ZITHROMAX 500 MG PO (09:08)
[2025-04-04] MEDS: DECADRON 10 MG PO (09:11)
[2025-04-04] MEDS: DUONEB 3 ML INH (09:12)
[2025-04-04] MEDS: TORADOL 15 MG IM (09:30)
== END 2025-04-04 10:24 | disposition home or self-care (01) ==
LOC: EMR 07:50
PROVIDERS: EMERGENCY PHYSICIAN Student in an Organized Health Care Education/Training Program
DX: J44.1 Chronic obstructive pulmonary disease with (acute) exacerbation (principal); J18.9 Pneumonia, unspecified organism; E11.9 Type 2 diabetes mellitus without complications; M19.90 Unspecified osteoarthritis, unspecified site; Z87.891 Personal history of nicotine dependence
CPT/HCPCS: 99283; 94640; 96372; 71046; 87502; 87811